=== PATIENT | female | born 1940 | race Caucasian/White ===

== ENCOUNTER 2017-08-23 10:11 | Emergency (ER) | payer MEDICARE ==
--- NOTE | 2017-08-23 11:11 | RAD ---
LEFT HIP 2 VIEWS: Date: 08/23/17 HISTORY: Emergency exam. Fall. COMPARISON: 08/27/16 exam. FINDINGS: There is a healed intertrochanteric fracture with intramedullary nail. Mild calcific tendinosis of th e iliopsoas tendon. Left obturator ring is intact. IMPRESSION: Satisfactory appearance of the left femoral hardware. No acute fracture or malalignment. POS: [facility]
[2017-08-23 11:25] LABS: #Basophils 0.1 thou/uL (0.0-0.2); #Eosinphils 0.1 thou/uL (0.0-0.7); #Lymphocytes 1.8 thou/uL (1.20-3.40); #Monocytes 0.6 thou/uL (0.11-0.59); #Neutrophils 6.8 thou/uL (1.40-6.50); %Basophils 0.6 % (0.0-1.0); %Eosinophils 1.4 % (0.0-10.0); %Lymphocytes 19.5 % (21.0-51.0); %Monocytes 6.4 % (0.0-10.0); %Neutrophils 72.2 % (42.0-75.0); Hemoglobin 13.6 g/dL (12.0-16.0); Mean Corpuscular HGB CONC 32.9 g/dL (32.0-36.0); Mean Corpuscular Volume 94.2 fl (81.0-99.0); Mean Platelet Volume 6.9 fL (7.4-10.4); Platelet Count 290 thou/uL (130-400); RBC Distribution Width 12.9 % (11.5-14.5); Red Blood Cell (RBC) Count 4.39 mill/uL (4.20-5.40); White Blood Cell (WBC) Count 9.4 thou/uL (4.8-10.8)
[2017-08-23 11:31] LABS: INR-International Normal Ratio 1.1; Prothrombin Time 14.4 SEC (12.0-14.7)
--- NOTE | 2017-08-23 11:33 | RAD ---
SUPINE FRONTAL RADIOGRAPH CHEST: Date: 08-23-17 Comparison: 08-27-16 History: Pain, fall. FINDINGS: Supine imaging limits assessment for pneumothorax and pleural fluid. There is atherosclerotic calcifi cation of the thoracic aorta. No lobar consolidation or alveolar edema. IMPRESSION: No acute findings. POS: [facility]
--- NOTE | 2017-08-23 11:34 | RAD ---
TWO VIEWS OF THE RIGHT FEMUR: Date: 08-23-17 Provided Clinical History: Hip pain status post fall. FINDINGS/IMPRESSION: There is no evidence for fracture or other acute osseous abnormality involving the right femur. Vascu lar calcifications are seen. Degenerative changes are seen at the right knee. If there is persistent clinical concern, conservative management and follow up imaging are advised. POS: OFF
[2017-08-23 11:36] LABS: PTT 27.9 SEC (22.9-36.1)
--- NOTE | 2017-08-23 11:37 | RAD ---
FRONTAL RADIOGRAPH PELVIS: Date: 08-23-17 Comparison: 08-27-16 History: Fall, pain. FINDINGS: There is post-operative hardware associated with the left femoral neck and imaged proximal left femur . No widening of the sacroiliac joints or pubic symphysis. The pelvic rings appears intact. There is os teophyte formation in the region of the greater trochanter on the right. No displaced fracture. IMPRESSION: No displaced fracture seen. POS: [facility]
--- NOTE | 2017-08-23 11:40 | CT ---
CT BRAIN: Date: 08-23-17 Provided Clinical History: Fall. FINDINGS: Comparison 09-30-08. The ventricular system appears normal in size and morphology. There is no evidence for intracranial h emorrhage or mass effect. The extracranial soft tissues and osseous structures demonstrate no evidenc e for an acute abnormality. IMPRESSION: No evidence for intracranial hemorrhage or mass effect. POS: OFF
--- NOTE | 2017-08-23 11:45 | CT ---
CERVICAL SPINE CT: Date: 08-23-17 Provided Clinical History: Fall. FINDINGS: There is no evidence for fracture or traumatic subluxation. No prevertebral soft tissue swelling is e vident. Visualized lung apices appear clear. Cervical degenerative changes are seen. IMPRESSION: No evidence for fracture or traumatic subluxation. POS: OFF
[2017-08-23 11:51] LABS: CKMB 1.8 ng/mL (0-6.6); Troponin I Less than 0.010 ng/mL (< 0.028)
[2017-08-23 11:56] LABS: ALT (SGPT) 12 U/L (8-55); AST (SGOT) 16 U/L (5-34); Albumin 4.1 g/dL (3.4-4.8); Alkaline Phosphatase 83 U/L (40-150); Anion Gap 11 mmol/L (10-20); BUN (Urea Nitrogen) 25 mg/dL (9.8-20.1); Bilirubin, Total 0.6 mg/dL (0.2-1.2); CK (CPK) 38 U/L (29-168); Calc. Creatinine Clearance 0 mL/min (70-130); Calcium 10.1 mg/dL (7.8-10.44); Carbon Dioxide 27 mmol/L (23-31); Estimated GFR-MDRD 54; Globulin 3.4 g/dL (2.4-3.5); Glucose 115 mg/dL (83-110); Potassium 5.1 mmol/L (3.5-5.1); Protein, Total 7.5 g/dL (6.0-8.3); Sodium 135 mmol/L (136-145)
[2017-08-23 12:00] LABS: Chloride 102 mmol/L (98-107)
== END 2017-08-23 13:56 | disposition home or self-care (01) ==
LOC: ERS 10:11
DX: M25.552 Pain in left hip (principal); E03.9 Hypothyroidism, unspecified; I10 Essential (primary) hypertension; W17.89XA Other fall from one level to another, initial encounter
CPT/HCPCS: 36415; 70450; 71045; 72125; 72170; 80053; 82553; 84484; 85025; 85610; 85730

== ENCOUNTER 2019-05-13 22:11 | Inpatient (IN) | payer MEDICARE, MEDICAID ==
[~2019-05-13 22:11] MED LIST: Iopamidol-370 76% 500 ML 1 ML ONE
--- NOTE | 2019-05-13 23:06 | RAD ---
Chest one view HISTORY: Cough. Hypoxia. COMPARISON: 08/23/2017. FINDINGS: Cardiac silhouette is magnified, enlarged, and partially obscured by left pleural fluid and patchy bibasilar infiltrates. Pulmonary vasculature is engorged. Mediastinum is midline with aortic calcification. No evidence of pneumothorax. IMPRESSION: Dense bibasilar infiltrates and left pleural fluid. Consider pneumonitis at the lung base s superimposed upon pulmonary vascular congestion. Atherosclerosis.
[2019-05-13] MEDS ORDERED: Diltiazem 125 MG/25 ML ONE (23:07)
[2019-05-13] MEDS ORDERED: Aspirin Chewable 81 MG TAB ONE (23:15)
[2019-05-13 23:16] LABS: #Basophils 0.1 thou/uL (0.0-0.2); #Eosinphils 0.1 thou/uL (0.0-0.7); #Lymphocytes 1.8 thou/uL (1.20-3.40); #Neutrophils 9.1 thou/uL (1.40-6.50); %Basophils 0.7 % (0.0-1.0); %Eosinophils 0.8 % (0.0-10.0); %Lymphocytes 14.5 % (21.0-51.0); %Monocytes 8.4 % (0.0-10.0); %Neutrophils 75.5 % (42.0-75.0); Hemoglobin 11.6 g/dL (12.0-16.0); Mean Corpuscular HGB CONC 31.9 g/dL (32.0-36.0); Mean Corpuscular Hemoglobin 29.4 pg (27.0-31.0); Mean Corpuscular Volume 92.2 fL (78.0-98.0); Mean Platelet Volume 7.2 fL (7.4-10.4); Platelet Count 345 thou/uL (130-400); RBC Distribution Width 14.3 % (11.5-14.5); Red Blood Cell (RBC) Count 3.94 mill/uL (4.20-5.40); White Blood Cell (WBC) Count 12.1 thou/uL (4.8-10.8)
[2019-05-13 23:39] LABS: ALT (SGPT) 14 U/L (8-55); AST (SGOT) 18 U/L (5-34); Albumin 3.8 g/dL (3.4-4.8); Alkaline Phosphatase 117 U/L (40-110); Anion Gap 14 mmol/L (10-20); BUN (Urea Nitrogen) 21 mg/dL (9.8-20.1); Bilirubin, Total 0.8 mg/dL (0.2-1.2); CK (CPK) 23 U/L (29-168); Calc. Creatinine Clearance 0 mL/min (70-130); Calcium 9.9 mg/dL (7.8-10.44); Carbon Dioxide 27 mmol/L (23-31); Chloride 108 mmol/L (98-107); Estimated GFR-MDRD 55; Globulin 3.5 g/dL (2.4-3.5); Glucose 153 mg/dL (83-110); Lipase 41 U/L (8-78); Magnesium 1.9 mg/dL (1.6-2.6); Potassium 4.5 mmol/L (3.5-5.1); Protein, Total 7.3 g/dL (6.0-8.3); Sodium 144 mmol/L (136-145)
[2019-05-13] MEDS ORDERED: Sodium Chloride 0.9% 1,000 ML IV SCH (23:45)
[2019-05-13 23:51] LABS: Actual Bicarbonate (HCO3a) 24.2 mEq/L (22-28); Analyzer IN Cardio ER; Base Excess (BEa) 0.1 mEq/L (-2.0 to +3.0); CO2 Tension 37.4 mmHg (35.0-45.0); Calcium, Ionized 1.26 mmol/L (1.12-1.30); Carboxyhemoglobin (COHb) 0.5 gm% (0.0-3.0); Hemoglobin (Hb) 12.1 g/dL (12.0-16.0); O2 Tension (PaO2) 92.4 mmHg (> 60.0); Potassium - ABG Lab 4.11 mmol/L (3.70-5.30); pH, Arterial 7.43 (7.35-7.45)
[2019-05-13 23:53] LABS: Puncture Site RRA
[2019-05-13] MEDS ORDERED: Diltiazem HCl 125 MG, Admixture Fee 1 EACH in Sodium Chloride 0.9% 100 ML IVPB SCH (23:59)
[2019-05-14 00:01] LABS: CKMB 1.3 ng/mL (0-6.6)
--- NOTE | 2019-05-14 00:37 | PDOC.HHP ---
Hospitalist HPI - History of Present Illness Hypoxia History of Present Illness: Esteban is an 79 year old female brought here from [facility], was desaturating to 80s, had h/o dementia. In ED found to be afib w/ RVR, 126 bpm on EKG, hypoxic, patient placed on diltiazem drip and converted to sinus then back to afib, rate improved however. O2 sat initally low 90s on 3L but improved once cardiac status improved. Labs revealed elevated troponin. BNP elevated. Given empiric vanc/zosyn/levaquin for possible aspiration pneumonia, [facility] physicians consutled for admission. CTA performed and report pending. On my exam sleeping but rousable, denies shortness of breath or chest pain. Hospitalist ROS - Review of Systems Eyes: denies: pain, vision change ENT: denies: ear pain, ear discharge Respiratory: reports: shortness of breath. denies: cough, dry Cardiovascular: denies: chest pain, palpitations Gastrointestinal: denies: nausea, vomiting Genitourinary: denies: dysuria, frequency Musculoskeletal: denies: neck pain, shoulder pain Skin: denies: rash, lesions Neurological: denies: weakness, numbness All other systems reviewed; all pertinent +/- noted in HPI/Subj Hospitalist History - Past Medical History Other Medical History: hypothyroidism HTN Alzheimers dementia - Past Surgical History Other Surgical History: hysterectomy, bladder suspension, R hip surgery - Family History Family History: reports: no pertinent history - Social History Smoking Status: Former smoker Alcohol: reports: None Drugs: reports: none Living Situation: Alf - Exam General Appearance: NAD, awake alert Eye: PERRL, anicteric sclera ENT: normocephalic atraumatic, moist mucosa Neck: supple, no JVD Heart: irregular Heart - other findings: tachycardic Respiratory: CTAB, no wheezes, no rales, no ronchi Gastrointestinal: soft, non-tender, non-distended, normal bowel sounds Extremities: no cyanosis, no clubbing, no edema Skin: no lesions, no rashes Neurological: cranial nerve grossly intact, normal sensation to touch, no focal deficits Hospitalist Results - Labs Result Diagrams: 05/13/19 23:04 05/13/19 23:04 Lab results: WBC 12.1 thou/uL (4.8-10.8) H 05/13/19 23:04 Hgb 11.6 g/dL (12.0-16.0) L 05/13/19 23:04 Hct 36.3 % (36.0-47.0) 05/13/19 23:04 MCV 92.2 fL (78.0-98.0) 05/13/19 23:04 Plt Count 345 thou/uL (130-400) 05/13/19 23:04 Neutrophils % 75.5 % (42.0-75.0) H 05/13/19 23:04 ABG pH 7.43 (7.35-7.45) 05/13/19 23:43 ABG pCO2 37.4 mmHg (35.0-45.0) 05/13/19 23:43 ABG pO2 92.4 mmHg (> 60.0) H 05/13/19 23:43 Sodium 144 mmol/L (136-145) 05/13/19 23:04 Potassium 4.5 mmol/L (3.5-5.1) 05/13/19 23:04 Chloride 108 mmol/L (98-107) H 05/13/19 23:04 Carbon Dioxide 27 mmol/L (23-31) 05/13/19 23:04 BUN 21 mg/dL (9.8-20.1) H 05/13/19 23:04 Creatinine 0.97 mg/dL (0.6-1.1) 05/13/19 23:04 Glucose 153 mg/dL (83-110) H 05/13/19 23:04 Lactic Acid 1.2 mmol/L (0.5-2.2) 05/13/19 23:30 Calcium 9.9 mg/dL (7.8-10.44) 05/13/19 23:04 Total Bilirubin 0.8 mg/dL (0.2-1.2) 05/13/19 23:04 AST 18 U/L (5-34) 05/13/19 23:04 ALT 14 U/L (8-55) 05/13/19 23:04 Alkaline Phosphatase 117 U/L (40-110) H 05/13/19 23:04 Creatine Kinase 23 U/L (29-168) L 05/13/19 23:04 CK-MB (CK-2) 1.3 ng/mL (0-6.6) 05/13/19 23:04 Troponin I 0.039 ng/mL (< 0.028) H 05/13/19 23:04 B-Natriuretic Peptide 461.6 pg/mL (0-100) H 05/13/19 23:04 Serum Total Protein 7.3 g/dL (6.0-8.3) 05/13/19 23:04 Albumin 3.8 g/dL (3.4-4.8) 05/13/19 23:04 Lipase 41 U/L (8-78) 05/13/19 23:04 - EKG Interpretation EKG: afib rate [address] changes Hospitalist H&P A/P - Plan Plan: Esteban is an 79 year old female with PMH hypothyroidism, HTN, Alzheimers dementia admitted for: # bilateral pneumonia - suspect aspiration given dementia - admit to telemetry - speech consult - vanc and zosyn - follow up final read of CTA, not yet completed # atrial fibrillation w/ rvr - continue diltiazem gtt - treat infection as above # sepsis secondary to pneumonia - treat as above, follow blood cultures # hypothyroidism - resume home meds once med rec complete # HTN - resume home meds once med rec complete, PRNs in chart # Alzheimers dementia - resume home meds once med rec complete
[2019-05-14] MEDS ORDERED: Piperacillin/Tazobactam 3.375 GM VIAL ONE ×3 (00:44→16:31)
[2019-05-14 02:47] LABS: Troponin I 0.023 ng/mL (< 0.028)
[2019-05-14 03:07] LABS: Bilirubin Negative (Negative); Blood, Urine Negative (Negative); Clarity Clear (Clear); Glucose, Urine (Dipstick) Normal (Negative); Leukocyte 500 Leu/uL (Negative); Nitrite 1+ (Negative); Protein, Urine (Dipstick) 30 mg/dL (Neg-Trace); Squamous Epithelial 0-3 HPF (0-3); Urobilinogen Normal mg/dL (Less than 2); WBC/HPF 21-50 HPF (0-3)
[2019-05-14 03:09] LABS: Bacteria/HPF 1+ HPF (None Seen)
[2019-05-14 03:12] LABS: RBC/HPF None Seen HPF (0-3)
[2019-05-14] MEDS ORDERED: Morphine 2 MG/ML SYRINGE SLOW IVP PRN (03:45)
[2019-05-14] MEDS ORDERED: Promethazine HCl 12.5 MG in Sodium Chloride 0.9% 50 ML IVPB PRN (03:45)
[2019-05-14] MEDS ORDERED: hydrALAZINE 20 MG/ML VIAL SLOW IVP PRN (03:45)
[2019-05-14] MEDS ORDERED: Ondansetron PF 4 MG/2 ML Vial IVP PRN (03:45)
[2019-05-14] MEDS ORDERED: cloNIDine 0.1 MG TAB PO PRN (03:45)
[2019-05-14] MEDS ORDERED: Sodium Chloride 0.9% 1,000 ML IV SCH (04:37)
[2019-05-14] MEDS ORDERED: Azithromycin 500 MG in Sodium Chloride 0.9% 250 ML 250 ML IVPB SCH (04:45)
[2019-05-14] MEDS ORDERED: Ampicillin/Sulbactam 3 GM in Sodium Chloride 0.9% 100 ML IVPB SCH (05:00)
[2019-05-14 05:31] VITALS: BMI 22.5
[2019-05-14] MEDS: Piperacillin/Tazobactam 3.375 GM in Sodium Chloride 0.9% 100 ML IVPB SCH ×4 (06:00→23:59)
[2019-05-14] MEDS: Vancomycin HCl 1 GM in Premix Bag 1 BAG IVPB SCH (06:20)
[2019-05-14 06:33] LABS: Troponin I 0.025 ng/mL (< 0.028)
--- NOTE | 2019-05-14 08:33 | CT ---
PRELIMINARY REPORT/[facility]/EMERGENCY AFTER HOURS PROCEDURE: EXAM: CTA Chest with Intravenous Contrast CLINICAL HISTORY: 79 YO F presents to the ED via EMS from [facility] w/ mid 80's on RA. Pt states she's coughing mo re than usual. Cough is productive at times. Pt denies trouble breathing, is unsure about chest taqueria n. Pt has a hx of dementia, hip fx, and smoking. TECHNIQUE: Axial CTA images of the chest with intravenous contrast. MIP reconstructed images were created and re viewed. CONTRAST: With; 70ML ISOVUE 370 COMPARISON: None provided. FINDINGS: PULMONARY ARTERIES: There is no intraluminal filling defect suspicious for PE. AORTA: Calcifications of the aorta. LUNGS: Patchy opacities throughout the lungs are favored to represent pneumonia. PLEURAL SPACES: Moderate right and small left pleural effusions. HEART AND MEDIASTINUM: Coronary artery calcifications. Cardiomegaly. LYMPH NODES: No lymphadenopathy. BONES: No focal osseous abnormality or acute fracture. CHEST WALL AND UPPER ABDOMEN: Images through the upper abdomen are unremarkable. The chest wall is un remarkable. IMPRESSION: No pulmonary embolism. No thoracic aortic aneurysm or dissection. Cardiomegaly with moderate right and small left pleural effusions. Patchy opacities throughout the lungs are favored to represent pneumonia. ELECTRONICALLY SIGNED BY: Vaishali Amanda MD May 14, 2019 12:36:53 AM OIL HE[employer] TECHNICIAN This report is intended for review by the ordering physician only, in accordance of law. If you recei ve this report in error, please call [facility] at [phone]. FINAL REPORT CT ANGIOGRAM OF THE CHEST: HISTORY: Hypoxia. Tachycardia. COMPARISON: None. TECHNIQUE: CT angiogram of the chest was performed in the axial plane. Three-dimensional reformatted images are submitted for interpretation. FINDINGS: There is evidence of cardiomegaly. No significant pericardial fluid. Extensive atherosclerosis of t he aorta. No evidence of pulmonary artery embolism to the level of the segmental arteries. Bilatera l pleural effusions with lung parenchymal changes due to atelectasis, pneumonia, or aspiration. Néstor tional patchy ground-glass opacities in both upper lobes may represent edema. IMPRESSION: This report is in agreement with the preliminary report by [facility]. No evidence of pulmonar y artery embolism to the level of the segmental arteries. POS: OFF
[2019-05-14] MEDS: Senokot S 8.6-50 MG TAB PO SCH ×2 (09:00→21:10)
[2019-05-14] MEDS ORDERED: Azithromycin 250 MG TAB PO SCH (09:00)
[2019-05-14 09:28] LABS: Troponin I 0.012 ng/mL (< 0.028)
[2019-05-14 13:15] LABS: Troponin I 0.037 ng/mL (< 0.028)
[2019-05-14] MEDS ORDERED: Furosemide 40 MG/4 ML VIAL SLOW IVP SCH ×2 (15:00→20:45)
[2019-05-14] MEDS ORDERED: Furosemide 40 MG/4 ML VIAL ONE (15:39)
[2019-05-14 16:24] LABS: Troponin I 0.034 ng/mL (< 0.028)
[2019-05-14] MEDS ORDERED: Furosemide 20 MG/2 ML VIAL SLOW IVP SCH (19:45)
--- NOTE | 2019-05-14 20:01 | PDOC.HOSPP ---
- Subjective Encounter Date: 05/14/19 Encounter Time: 13:48 Subjective: 79 y/o female, assisted resident, with dementia, HTN admitted with worsening cough/SOB associated with wheezing and hypoxia. Found to be in A fib RVR. Further evaluation with CTA chest was negative for PE but showed multifocal opacities. Started on broad spectrum antibiotics and cardizem infusion. Later developed worsening SOB which improved with breathing treatment and lasix. - Objective Vital Signs & Weight: Vital Signs (12 hours) Temp Pulse Resp BP Pulse Ox 05/14/19 19:21 98 20 05/14/19 16:31 105 H 26 H 90/70 90 L 05/14/19 16:00 100 29 H 95/65 05/14/19 13:17 84 23 H 05/14/19 12:42 97.8 F 05/14/19 12:30 88 24 H 135/81 91 L 05/14/19 12:00 85 20 134/59 L 92 L 05/14/19 11:30 90 20 123/58 L 93 L 05/14/19 10:30 87 121/71 95 05/14/19 10:12 98.0 F 05/14/19 08:33 75 19 137/104 H 96 05/14/19 08:00 81 21 H 135/83 94 L Weight Weight 139 lb 11.2 oz Result Diagrams: 05/13/19 23:04 05/13/19 23:04 Hospitalist ROS - Medication Medications: Active Medications Generic Name Dose Route Start Last Admin Trade Name Freq PRN Reason Stop Dose Admin Albuterol/Ipratropium 3 ml 05/14/19 13:00 05/14/19 19:21 Duoneb NEB 3 ml [id number] KAREN Administration Piperacillin Sod/Tazobactam 100 mls @ 200 mls/hr 05/14/19 06:00 05/14/19 16: 33 Sod 3.375 gm/ Sodium Chloride IVPB 100 mls Q6HR KAREN Administration Vancomycin HCl 1 gm/ Device 200 mls @ 133.333 mls/hr 05/14/19 06:00 05/14/19 06:20 IVPB 200 mls 0600 KAREN Administration Levofloxacin 750 mg/ Device 150 mls @ 100 mls/hr 05/14/19 12:00 05/14/19 12: 30 IVPB 150 mls 1200 KAREN Administration Pantoprazole Sodium 40 mg 05/14/19 09:00 05/14/19 09:00 Protonix PO Not Given DAILY KAREN Senna/Docusate Sodium 1 tab 05/14/19 09:00 05/14/19 09:00 Senokot S PO Not Given BID KAREN - Exam General Appearance: awake alert Eye: anicteric sclera ENT: normocephalic atraumatic Neck: symmetric, no JVD Heart: irregular, murmur present Respiratory - other findings: fair air entry with scattered rhonchi and transmitted sound. Gastrointestinal: soft, non-tender, non-distended, normal bowel sounds Extremities: no cyanosis, 1+ LE edema Neurological: cranial nerve grossly intact, no focal deficits Hosp A/P (1) Acute respiratory failure Code(s): J96.00 - ACUTE RESPIRATORY FAILURE, UNSP W HYPOXIA OR HYPERCAPNIA Status: Acute (2) Atrial fibrillation with rapid ventricular response Code(s): I48.91 - UNSPECIFIED ATRIAL FIBRILLATION Status: Acute (3) Multifocal pneumonia Code(s): J18.9 - PNEUMONIA, UNSPECIFIED ORGANISM Status: Acute (4) Acute CHF Code(s): I50.9 - HEART FAILURE, UNSPECIFIED Status: Acute (5) Elevated troponin Code(s): R79.89 - OTHER SPECIFIED ABNORMAL FINDINGS OF BLOOD CHEMISTRY Status : Acute (6) Hypothyroidism Code(s): E03.9 - HYPOTHYROIDISM, UNSPECIFIED Status: Acute (7) Dementia Code(s): F03.90 - UNSPECIFIED DEMENTIA WITHOUT BEHAVIORAL DISTURBANCE Status: Acute - Plan Continue broad spectrum antibiotics, Start mucinex and bronchodilators as well as inhaled steroid. Start as needed diuretic. Get Echo and cardiology consult. Monitor CBC and renal function.
[2019-05-14] MEDS ORDERED: Budesonide 0.25 MG/2 ML NEB INH SCH (20:15)
[2019-05-14] MEDS: guaiFENesin ER 600 MG TAB PO SCH (21:10)
--- NOTE | 2019-05-15 01:48 | CON ---
DATE OF CONSULTATION: 05/14/2019 HISTORY OF PRESENT ILLNESS: Shaun Nicolas is an 79-year-old white female, who I did see when she was admitted to the hospital in August 2016. She stated that she had been told for years that she had a heart murmur. She had a fall at home, underwent ORIF of the left hip. She did describe episodes of PND when I saw her after surgery. She denies any chest discomfort. Echocardiogram revealed ejection fraction of 55% to 60%. There was evidence for diastolic dysfunction. There was mild mitral regurgitation, mild tricuspid regurgitation. The peak gradient across the aortic valve is 58 mm, mean gradient 39 mm. Aortic valve area 0.57 cm2. She returned to the office on October 25, 2016, and still had not recovered very well from her hip ORIF. Both the son and patient agreed that more recovery time was needed before addressing the aortic stenosis. We agreed that she should return in 2 months for followup. She did have a 2-month followup appointment, but did not return for that and I have not seen her since. She since has gone to the [facility]. When asked if she gets up and walk, she says yes but the son says that she is basically in a wheelchair. She has had several falls in the bathroom at [facility]. She was noted to have increased dyspnea today as well as was hypoxic, and was brought to the emergency room. She has been noted to be in atrial fibrillation with fast ventricular response, was started on intravenous Cardizem, and initially converted back to sinus rhythm, but is now back in atrial fibrillation. However, the rate appears to be controlled in the low to mid 90s. She denies chest discomfort at this time. She does state that at times, she will have chest pressure that lasts for 10 seconds. PAST MEDICAL HISTORY: Hypertension, hypothyroidism, anemia, dementia, aortic stenosis. PAST SURGICAL HISTORY: Hysterectomy, bladder suspension, left hip ORIF. MEDICATIONS: 1. Aricept 10 mg daily. 2. Vasotec 5 mg daily. 3. Lovenox 40 mg q.p.m. 4. Ferrous sulfate 325 daily. 5. Hydralazine p.r.n. 6. Levothyroxine 75 mcg daily. 7. Namzaric 14/10 mg daily. 8. Zofran p.r.n. 9. Protonix 40 daily. 10. Sertraline 50 daily. 11. Ultram 100 mg q.4 hours p.r.n. ALLERGIES: SULFA. SOCIAL HISTORY: She stopped smoking 20 years ago. She does not drink. REVIEW OF SYSTEMS: Unreliable due to her dementia. PHYSICAL EXAMINATION: VITAL SIGNS: Blood pressure 131/76, pulse of 72. HEENT: PERRL. NECK: Supple. CHEST: Reveals crackles bilaterally. CARDIOVASCULAR: S1, S2 normal without any S3 or S4. There is a 2/6 systolic ejection murmur throughout the precordium. ABDOMEN: Normal bowel sounds without tenderness or organomegaly. EXTREMITIES: Revealed 1+ pretibial edema. NEUROLOGIC: Grossly intact. SKIN: Warm and dry. LABORATORY DATA: Chest x-ray revealed dense bibasilar infiltrates, left pleural effusion. Chest CT angiogram revealed no evidence of pulmonary embolism. There is cardiomegaly with moderate right and small left pleural effusion. Patchy of opacities throughout the lungs was felt to represent pneumonia. White count 12, 100; hemoglobin 11.6; hematocrit 36.3; platelets 365,000. PH 7.43, pCO2 of 37.4, PO2 of 92.4. Troponin I is up to 0.037, 0.039. BNP 461.6. Sodium 144, potassium 4.5, chloride 108, carbon dioxide 27, BUN 21, creatinine 0.97. TSH is normal. Above EKG revealed rate of 126 per minute with no acute changes. IMPRESSION: 1. Respiratory distress with hypoxemia, probably due to aspiration pneumonia. 2. Severe aortic stenosis with finding of peripheral edema. 3. Atrial fibrillation with fast ventricular response, which is a new finding for her. 4. Possible sepsis. 5. Hypertension. 6. Hypothyroidism. 7. Dementia. 8. The patient continues with falls. RECOMMENDATIONS: [facility], I do not feel that she should be anticoagulated. I feel that the best option with this lady would be rate control. Two years ago, the son, patient, and I made a decision not to be aggressive with treating the aortic stenosis, which would not be appropriate in a demented, nonambulatory [facility] patient. Job ID: [id number] MTDD
[2019-05-15] MEDS: Piperacillin/Tazobactam 3.375 GM in Sodium Chloride 0.9% 100 ML IVPB SCH ×4 (05:02→22:52)
[2019-05-15 05:10] LABS: #Lymphocytes 1.2 thou/uL (1.20-3.40); #Monocytes 1.1 thou/uL (0.11-0.59); %Basophils 0.3 % (0.0-1.0); %Eosinophils 0.2 % (0.0-10.0); %Lymphocytes 11.5 % (21.0-51.0); %Monocytes 10.2 % (0.0-10.0); %Neutrophils 77.8 % (42.0-75.0); Hemoglobin 10.1 g/dL (12.0-16.0); Mean Corpuscular HGB CONC 31.4 g/dL (32.0-36.0); Mean Corpuscular Hemoglobin 29.3 pg (27.0-31.0); Mean Corpuscular Volume 93.5 fL (78.0-98.0); Mean Platelet Volume 7.7 fL (7.4-10.4); Platelet Count 259 thou/uL (130-400); RBC Distribution Width 14.1 % (11.5-14.5); Red Blood Cell (RBC) Count 3.45 mill/uL (4.20-5.40); White Blood Cell (WBC) Count 10.2 thou/uL (4.8-10.8)
[2019-05-15 05:23] LABS: Anion Gap 16 mmol/L (10-20); BUN (Urea Nitrogen) 16 mg/dL (9.8-20.1); Calc. Creatinine Clearance 44 mL/min (70-130); Calcium 9.2 mg/dL (7.8-10.44); Carbon Dioxide 26 mmol/L (23-31); Chloride 105 mmol/L (98-107); Estimated GFR-MDRD 53; Glucose 137 mg/dL (83-110); Magnesium 1.6 mg/dL (1.6-2.6); Potassium 3.6 mmol/L (3.5-5.1); Sodium 143 mmol/L (136-145)
[2019-05-15] MEDS: Vancomycin HCl 1 GM in Premix Bag 1 BAG IVPB SCH (05:53)
[2019-05-15] MEDS: Budesonide 0.5 MG/2 ML NEB INH SCH ×2 (07:41→18:16)
[2019-05-15] MEDS ORDERED: Diltiazem HCl 125 MG, Admixture Fee 1 EACH in Sodium Chloride 0.9% 100 ML IVPB SCH (08:23)
[2019-05-15] MEDS ORDERED: Digoxin 0.5 MG/2 ML AMP SLOW IVP SCH ×2 (08:30→15:00)
[2019-05-15] MEDS: guaiFENesin ER 600 MG TAB PO SCH ×2 (09:50→21:05)
[2019-05-15] MEDS: Furosemide 20 MG TAB PO SCH (09:50)
[2019-05-15] MEDS: Senokot S 8.6-50 MG TAB PO SCH ×2 (09:50→20:56)
[2019-05-15] MEDS ORDERED: FLU VACC TS2019-20(65YR UP)/PF 180 MCG/0.5 ML SYRINGE IM ONE (10:15)
[2019-05-15] MEDS ORDERED: Prevnar 13-Val Conj/PF 0.5 ML SYRINGE IM ONE (10:15)
--- NOTE | 2019-05-15 15:08 | PDOC.HOSPP ---
- Subjective Subjective: Says she is doing ok. Reports breathing ok. Voices no other concerns. - Objective Vital Signs & Weight: Vital Signs (12 hours) Temp Pulse Resp BP BP Pulse Ox 05/15/19 14:38 85 05/15/19 13:17 85 18 94 L 05/15/19 11:55 97.4 F L 67 20 117/55 L 96 05/15/19 09:51 90 05/15/19 07:57 92 L 05/15/19 07:54 98.2 F 90 18 110/55 L 92 L 05/15/19 07:40 88 16 94 L 05/15/19 04:01 97.5 F L 108 H 16 107/52 L 92 L Weight Weight 139 lb 11.2 oz Result Diagrams: 05/15/19 04:32 05/15/19 04:32 Hospitalist ROS - Medication Medications: Active Medications Generic Name Dose Route Start Last Admin Trade Name Freq PRN Reason Stop Dose Admin Albuterol/Ipratropium 3 ml 05/14/19 13:00 05/15/19 13:17 Duoneb NEB 3 ml [id number] KAREN Administration Budesonide 0.5 mg 05/15/19 06:30 05/15/19 07:41 Pulmicort Neb Solution INH 0.5 mg BID-RT KAREN Administration Digoxin 0.25 mg 05/15/19 15:00 05/15/19 14:38 Lanoxin SLOW IVP 05/15/19 17:00 0.25 mg 1500 KAREN Administration Furosemide 20 mg 05/15/19 09:00 05/15/19 09:50 Lasix PO 20 mg DAILY KAREN Administration Guaifenesin 600 mg 05/14/19 21:00 05/15/19 09:50 Mucinex PO 600 mg Q12HR KAREN Administration Piperacillin Sod/Tazobactam 100 mls @ 200 mls/hr 05/14/19 06:00 05/15/19 12: 58 Sod 3.375 gm/ Sodium Chloride IVPB 100 mls Q6HR KAREN Administration Vancomycin HCl 1 gm/ Device 200 mls @ 133.333 mls/hr 05/14/19 06:00 05/15/19 05:53 IVPB 200 mls 0600 KAREN Administration Levofloxacin 750 mg/ Device 150 mls @ 100 mls/hr 05/14/19 12:00 05/15/19 12: 58 IVPB 150 mls 1200 KAREN Administration Pantoprazole Sodium 40 mg 05/14/19 09:00 05/15/19 09:50 Protonix PO 40 mg DAILY KAREN Administration Senna/Docusate Sodium 1 tab 05/14/19 09:00 05/15/19 09:50 Senokot S PO 1 tab BID KAREN Administration - Exam General Appearance: NAD, awake alert Heart: RRR, no gallops, no rubs, normal peripheral pulses, II/IV (High pitched systolic throughout the precordium.) Respiratory: CTAB, no wheezes, no rales, no ronchi, normal chest expansion, no tachypnea, normal percussion Gastrointestinal: soft, non-tender, non-distended, normal bowel sounds, no palpable masses, no hepatomegaly, no splenomegaly, no bruit Extremities: no cyanosis, no clubbing, no edema Musculoskeletal: normal tone, generalized weakness Psychiatric: normal affect Hosp A/P (1) Acute respiratory failure Code(s): J96.00 - ACUTE RESPIRATORY FAILURE, UNSP W HYPOXIA OR HYPERCAPNIA Status: Acute (2) Atrial fibrillation with rapid ventricular response Code(s): I48.91 - UNSPECIFIED ATRIAL FIBRILLATION Status: Acute (3) Dementia Code(s): F03.90 - UNSPECIFIED DEMENTIA WITHOUT BEHAVIORAL DISTURBANCE Status: Acute (4) Elevated troponin Code(s): R79.89 - OTHER SPECIFIED ABNORMAL FINDINGS OF BLOOD CHEMISTRY Status : Acute (5) Hypothyroidism Code(s): E03.9 - HYPOTHYROIDISM, UNSPECIFIED Status: Acute (6) Multifocal pneumonia Code(s): J18.9 - PNEUMONIA, UNSPECIFIED ORGANISM Status: Acute (7) Severe aortic stenosis Code(s): I35.0 - NONRHEUMATIC AORTIC (VALVE) STENOSIS Status: Acute (8) Severe tricuspid regurgitation Code(s): I07.1 - RHEUMATIC TRICUSPID INSUFFICIENCY Status: Acute (9) Acute on chronic systolic (congestive) heart failure Code(s): I50.23 - ACUTE ON CHRONIC SYSTOLIC (CONGESTIVE) HEART FAILURE Status : Acute (10) CKD (chronic kidney disease), stage III Code(s): N18.3 - CHRONIC KIDNEY DISEASE, STAGE 3 (MODERATE) Status: Acute - Plan Possible aspiration pneumonia. She had swallow eval by [facility] and recommendations noted. Has some degree of dysphagia. Continue IV Vanc and Zosyn given that she is from [facility]. Can narrow as she is improves. Has chosen not to pursue treatment of valvular disease. Palliative care consult. Cardiology working on rate control efforts with digoxin. No anticoagulation. Oxygen and nebs for respiratory failure. Seems to be improved, but still has significant oxygen demand. Elevated troponins are not physiologically consistent with ischemia of any kind. She does not have sepsis.
[2019-05-16] MEDS: Piperacillin/Tazobactam 3.375 GM in Sodium Chloride 0.9% 100 ML IVPB SCH ×3 (05:32→17:42)
[2019-05-16 05:33] LABS: #Eosinphils 0.2 thou/uL (0.0-0.7); #Lymphocytes 1.4 thou/uL (1.20-3.40); #Neutrophils 10.3 thou/uL (1.40-6.50); %Basophils 0.1 % (0.0-1.0); %Eosinophils 1.2 % (0.0-10.0); %Lymphocytes 11.1 % (21.0-51.0); %Monocytes 7.5 % (0.0-10.0); %Neutrophils 80.1 % (42.0-75.0); Hemoglobin 11.2 g/dL (12.0-16.0); Mean Corpuscular HGB CONC 32.2 g/dL (32.0-36.0); Mean Corpuscular Hemoglobin 29.7 pg (27.0-31.0); Mean Corpuscular Volume 92.2 fL (78.0-98.0); Platelet Count 270 thou/uL (130-400); Red Blood Cell (RBC) Count 3.77 mill/uL (4.20-5.40); White Blood Cell (WBC) Count 12.9 thou/uL (4.8-10.8)
[2019-05-16 05:46] LABS: Anion Gap 16 mmol/L (10-20); BUN (Urea Nitrogen) 16 mg/dL (9.8-20.1); Calc. Creatinine Clearance 44 mL/min (70-130); Carbon Dioxide 24 mmol/L (23-31); Chloride 102 mmol/L (98-107); Estimated GFR-MDRD 53; Glucose 127 mg/dL (83-110); Magnesium 1.5 mg/dL (1.6-2.6); Potassium 3.8 mmol/L (3.5-5.1); Sodium 138 mmol/L (136-145); Vancomycin, Trough 12.5 ug/mL
[2019-05-16] MEDS: Vancomycin HCl 1 GM in Premix Bag 1 BAG IVPB SCH (06:34)
[2019-05-16] MEDS: Budesonide 0.5 MG/2 ML NEB INH SCH ×2 (06:52→18:35)
[2019-05-16] MEDS: Furosemide 20 MG TAB PO SCH (09:22)
[2019-05-16] MEDS: guaiFENesin ER 600 MG TAB PO SCH ×2 (09:22→20:07)
[2019-05-16] MEDS: Digoxin 0.125 MG TAB PO SCH (09:22)
[2019-05-16] MEDS: Senokot S 8.6-50 MG TAB PO SCH ×2 (09:23→20:07)
--- NOTE | 2019-05-16 15:19 | PDOC.HOSPP ---
- Subjective Encounter Date: 05/16/19 Encounter Time: 15:15 Subjective: f/u for resp failure, ? asp PNA on Zosyn/Vanc. - Objective Vital Signs & Weight: Vital Signs (12 hours) Temp Pulse Resp BP Pulse Ox 05/16/19 13:45 100 18 97 05/16/19 11:56 97.8 F 82 16 135/62 91 L 05/16/19 09:22 107 H 05/16/19 08:00 97 F L 107 H 17 157/57 H 94 L 05/16/19 06:53 96 05/16/19 06:52 90 16 96 05/16/19 03:43 97.9 F 103 H 20 125/52 L 92 L Weight Weight 139 lb 11.2 oz I&O: 05/15/19 05/16/19 05/17/19 06:59 06:59 06:59 Intake Total 320 Output Total 300 Balance 20 Result Diagrams: 05/16/19 04:44 05/16/19 04:44 Additional Labs: Microbiology 05/14/19 03:34 Urine Straight Catheter Urine Culture - Preliminary NO GROWTH AT 24 HOURS 05/13/19 23:32 Venous blood - Right Hand Blood Culture - Preliminary NO GROWTH AT 48 HOURS 05/13/19 23:30 Venous blood - Left Arm Blood Culture - Preliminary NO GROWTH AT 48 HOURS Laboratory Tests 05/16/19 04:44 Vancomycin Trough 12.5 Radiology Reviewed by me: Yes (2D echo - EF 55-60%, severe , severe TR, mod MR ) EKG Reviewed by me: Yes (Tele - A-fib in 60's) Hospitalist ROS - Medication Medications: Active Medications Generic Name Dose Route Start Last Admin Trade Name Freq PRN Reason Stop Dose Admin Albuterol/Ipratropium 3 ml 05/14/19 13:00 05/16/19 13:45 Duoneb NEB 3 ml [id number] KAREN Administration Budesonide 0.5 mg 05/15/19 06:30 05/16/19 06:52 Pulmicort Neb Solution INH 0.5 mg BID-RT KAREN Administration Digoxin 0.125 mg 05/16/19 09:00 05/16/19 09:22 Lanoxin PO 0.125 mg DAILY KAREN Administration Furosemide 20 mg 05/15/19 09:00 05/16/19 09:22 Lasix PO 20 mg DAILY KAREN Administration Guaifenesin 600 mg 05/14/19 21:00 05/16/19 09:22 Mucinex PO 600 mg Q12HR KAREN Administration Piperacillin Sod/Tazobactam 100 mls @ 200 mls/hr 05/14/19 06:00 05/16/19 11: 38 Sod 3.375 gm/ Sodium Chloride IVPB 100 mls Q6HR KAREN Administration Vancomycin HCl 1 gm/ Device 200 mls @ 133.333 mls/hr 05/14/19 06:00 05/16/19 06:34 IVPB 200 mls 0600 KAREN Administration Levofloxacin 750 mg/ Device 150 mls @ 100 mls/hr 05/14/19 12:00 05/16/19 11: 38 IVPB 150 mls 1200 KAREN Administration Pantoprazole Sodium 40 mg 05/14/19 09:00 05/16/19 09:23 Protonix PO 40 mg DAILY KAREN Administration Senna/Docusate Sodium 1 tab 05/14/19 09:00 05/16/19 09:23 Senokot S PO Not Given BID KAREN - Exam General Appearance: NAD, awake alert Eye: PERRL, anicteric sclera ENT: normocephalic atraumatic, no oropharyngeal lesions Neck: supple, symmetric, no JVD, no thyromegaly Heart: no gallops, no rubs, normal peripheral pulses, irregular Respiratory - other findings: diminished in bases, few scattered rhonchi Gastrointestinal: soft, non-tender, non-distended, normal bowel sounds, no palpable masses Extremities: no cyanosis, no clubbing, no edema Skin: normal turgor, no lesions Neurological: cranial nerve grossly intact, no new deficit Musculoskeletal: generalized weakness Psychiatric: oriented to person Hosp A/P (1) Acute on chronic systolic (congestive) heart failure Code(s): I50.23 - ACUTE ON CHRONIC SYSTOLIC (CONGESTIVE) HEART FAILURE Status : Acute Plan: EF 55-60%, continue Lasix 20mg daily, daily weights, I/O's (2) Acute respiratory failure Code(s): J96.00 - ACUTE RESPIRATORY FAILURE, UNSP W HYPOXIA OR HYPERCAPNIA Status: Acute Plan: Stable, continue O2 @ 2L/min NC (3) CKD (chronic kidney disease), stage III Code(s): N18.3 - CHRONIC KIDNEY DISEASE, STAGE 3 (MODERATE) Status: Chronic Plan: Stable currently, avoid nephrotoxic meds and limit contrast exposure (4) Dementia Code(s): F03.90 - UNSPECIFIED DEMENTIA WITHOUT BEHAVIORAL DISTURBANCE Status: Chronic Plan: Advanced, supportive mgmt, family for support (5) Severe aortic stenosis Code(s): I35.0 - NONRHEUMATIC AORTIC (VALVE) STENOSIS Status: Chronic Plan: No plan for surgical intervention, palliative measures (6) Severe tricuspid regurgitation Code(s): I07.1 - RHEUMATIC TRICUSPID INSUFFICIENCY Status: Chronic Plan: Conservative mgmt - Plan continue antibiotics, PT/OT, social scientist, speech therapy, respiratory therapy, DVT proph w/SCDs Consults: Palliative Care Stable currently Continue Lasix daily Continue Levaquin/Zosyn/Vanc Pulmonary support with Duonebs/Budesonide Palliative care consult Likely back to SNF in 24h
[2019-05-16] MEDS: Metoprolol Tartrate 25 MG TAB PO SCH (20:08)
[2019-05-16] MEDS: Donepezil HCl 10 MG TAB PO SCH (20:08)
[2019-05-17] MEDS: Piperacillin/Tazobactam 3.375 GM in Sodium Chloride 0.9% 100 ML IVPB SCH ×4 (00:45→17:25)
[2019-05-17 04:24] LABS: #Eosinphils 0.2 thou/uL (0.0-0.7); #Lymphocytes 1.7 thou/uL (1.20-3.40); #Neutrophils 10.1 thou/uL (1.40-6.50); %Eosinophils 1.3 % (0.0-10.0); %Lymphocytes 12.8 % (21.0-51.0); %Monocytes 7.5 % (0.0-10.0); %Neutrophils 78.4 % (42.0-75.0); Hemoglobin 11.2 g/dL (12.0-16.0); Mean Corpuscular Volume 90.4 fL (78.0-98.0); Mean Platelet Volume 7.8 fL (7.4-10.4); Platelet Count 284 thou/uL (130-400); RBC Distribution Width 13.9 % (11.5-14.5); Red Blood Cell (RBC) Count 3.87 mill/uL (4.20-5.40); White Blood Cell (WBC) Count 12.9 thou/uL (4.8-10.8)
[2019-05-17 04:37] LABS: Anion Gap 11 mmol/L (10-20); BUN (Urea Nitrogen) 14 mg/dL (9.8-20.1); Calc. Creatinine Clearance 44 mL/min (70-130); Calcium 9.4 mg/dL (7.8-10.44); Carbon Dioxide 30 mmol/L (23-31); Chloride 99 mmol/L (98-107); Estimated GFR-MDRD 52; Glucose 147 mg/dL (83-110); Magnesium 1.6 mg/dL (1.6-2.6); Potassium 3.3 mmol/L (3.5-5.1); Sodium 137 mmol/L (136-145)
[2019-05-17] MEDS: Levothyroxine Sodium 88 MCG TAB PO SCH (05:43)
[2019-05-17] MEDS: Vancomycin HCl 1 GM in Premix Bag 1 BAG IVPB SCH (05:49)
[2019-05-17] MEDS: Budesonide 0.5 MG/2 ML NEB INH SCH ×2 (07:13→19:11)
[2019-05-17] MEDS: Polyethylene Glycol 3350 17 GM Packet PO SCH (08:40)
[2019-05-17] MEDS: metFORMIN 500 MG TAB PO SCH ×2 (08:41→17:25)
[2019-05-17] MEDS: guaiFENesin ER 600 MG TAB PO SCH ×2 (08:41→20:41)
[2019-05-17] MEDS: Digoxin 0.125 MG TAB PO SCH (08:41)
[2019-05-17] MEDS: Senokot S 8.6-50 MG TAB PO SCH ×2 (08:42→20:41)
[2019-05-17] MEDS: Donepezil HCl 10 MG TAB PO SCH ×2 (08:42→20:41)
[2019-05-17] MEDS: Ferrous Sulfate 325 MG TAB PO SCH (08:42)
[2019-05-17] MEDS: Lisinopril 10 MG TAB PO SCH (08:42)
[2019-05-17] MEDS: Metoprolol Tartrate 25 MG TAB PO SCH ×2 (08:42→20:41)
[2019-05-17] MEDS: Aspirin Chewable 81 MG TAB PO SCH (08:43)
[2019-05-17] MEDS: Multivitamin W/ Minerals 1 TAB PO SCH (08:43)
[2019-05-17] MEDS: Furosemide 40 MG TAB PO SCH (08:43)
--- NOTE | 2019-05-17 12:29 | PDOC.HOSPP ---
- Subjective Encounter Date: 05/17/19 Encounter Time: 12:25 Subjective: f/u for CHF with bilateral pleural effusions on Lasix po and Levaquin/Vanc/ Zosyn. Remains on O2 supplementation 2L/min NC. - Objective Vital Signs & Weight: Vital Signs (12 hours) Temp Pulse Resp BP BP BP Pulse Ox 05/17/19 11:30 97.6 F 71 20 128/59 L 95 05/17/19 08:42 146/96 H 05/17/19 08:41 87 05/17/19 08:00 97.3 F L 87 16 146/96 H 92 L 05/17/19 07:15 81 16 97 05/17/19 07:13 84 16 97 05/17/19 03:50 97.7 F 80 20 132/63 94 L Weight Weight 139 lb 11.2 oz I&O: 05/16/19 05/17/19 05/18/19 06:59 06:59 06:59 Intake Total 320 1510 Output Total 300 1400 Balance 20 110 Result Diagrams: 05/17/19 03:39 05/17/19 03:39 Additional Labs: Microbiology 05/14/19 03:34 Urine Straight Catheter Urine Culture - Preliminary NO GROWTH AT 24 HOURS 05/13/19 23:32 Venous blood - Right Hand Blood Culture - Preliminary NO GROWTH AT 48 HOURS 05/13/19 23:30 Venous blood - Left Arm Blood Culture - Preliminary NO GROWTH AT 48 HOURS Laboratory Tests 05/13/19 05/15/19 05/16/19 23:04 04:32 04:44 WBC 12.1 H 10.2 Neutrophils % 75.5 H 77.8 H Potassium 3.8 Vancomycin Trough 05/16/19 05/16/19 05/17/19 04:44 04:44 03:39 WBC 12.9 H Neutrophils % 80.1 H 78.4 H Potassium Vancomycin Trough 12.5 Radiology Reviewed by me: Yes (CT chest- bilat pleural effusions with atelectasis) EKG Reviewed by me: Yes (Tele - A-fib in 60's) Hospitalist ROS - Medication Medications: Active Medications Generic Name Dose Route Start Last Admin Trade Name Freq PRN Reason Stop Dose Admin Albuterol/Ipratropium 3 ml 05/14/19 13:00 05/17/19 07:15 Duoneb NEB 3 ml [id number] KAREN Administration Aspirin 81 mg 05/17/19 09:00 05/17/19 08:43 Aspirin Chewable PO 81 mg DAILY KAREN Administration Budesonide 0.5 mg 05/15/19 06:30 05/17/19 07:13 Pulmicort Neb Solution INH 0.5 mg BID-RT KAREN Administration Digoxin 0.125 mg 05/16/19 09:00 05/17/19 08:41 Lanoxin PO 0.125 mg DAILY KAREN Administration Donepezil HCl 10 mg 05/17/19 09:00 05/17/19 08:42 Aricept PO 10 mg DAILY KAREN Administration Donepezil HCl 10 mg 05/16/19 21:00 05/16/19 20:08 Aricept PO 10 mg HS KAREN Administration Ferrous Sulfate 325 mg 05/17/19 09:00 05/17/19 08:42 Feosol PO 325 mg DAILY KAREN Administration Furosemide 40 mg 05/17/19 07:30 05/17/19 08:43 Lasix PO 40 mg DAILY-AC KAREN Administration Guaifenesin 600 mg 05/14/19 21:00 05/17/19 08:41 Mucinex PO 600 mg Q12HR KAREN Administration Piperacillin Sod/Tazobactam 100 mls @ 200 mls/hr 05/14/19 06:00 05/17/19 11: 46 Sod 3.375 gm/ Sodium Chloride IVPB 100 mls Q6HR KAREN Administration Vancomycin HCl 1 gm/ Device 200 mls @ 133.333 mls/hr 05/14/19 06:00 05/17/19 05:49 IVPB 200 mls 0600 KAREN Administration Levofloxacin 750 mg/ Device 150 mls @ 100 mls/hr 05/14/19 12:00 05/17/19 11: 46 IVPB 150 mls 1200 KAREN Administration Iron/Minerals/Multivitamins 1 tab 05/17/19 09:00 05/17/19 08:43 Theragran M PO 1 tab DAILY KAREN Administration Levothyroxine Sodium 88 mcg 05/17/19 06:00 05/17/19 05:43 Synthroid PO 88 mcg 0600 KAREN Administration Lisinopril 10 mg 05/17/19 09:00 05/17/19 08:42 Zestril PO 10 mg DAILY KAREN Administration Memantine 5 mg 05/16/19 21:00 05/17/19 08:42 Namenda PO 5 mg BID KAREN Administration Metformin HCl 250 mg 05/17/19 08:00 05/17/19 08:41 Glucophage PO 250 mg BID-WM KAREN Administration Metoprolol Tartrate 25 mg 05/16/19 21:00 05/17/19 08:42 Lopressor PO 25 mg BID KAREN Administration Pantoprazole Sodium 40 mg 05/14/19 09:00 05/17/19 08:42 Protonix PO 40 mg DAILY KAREN Administration Pantoprazole Sodium 40 mg 05/17/19 09:00 05/17/19 08:43 Protonix PO Not Given DAILY KAREN Polyethylene Glycol 17 gm 05/17/19 09:00 05/17/19 08:40 Miralax PO 17 gm DAILY KAREN Administration Senna/Docusate Sodium 1 tab 05/14/19 09:00 05/17/19 08:42 Senokot S PO 1 tab BID KAREN Administration Sertraline HCl 100 mg 05/17/19 09:00 05/17/19 08:42 Zoloft PO 100 mg DAILY KAREN Administration - Exam General Appearance: NAD, awake alert Eye: PERRL, anicteric sclera ENT: normocephalic atraumatic, no oropharyngeal lesions Neck: supple, symmetric, no JVD, no thyromegaly Heart: no gallops, no rubs, irregular, murmur present Respiratory - other findings: diminished bilat lung lugo, few rhonchi/coarse sounds Gastrointestinal: soft, non-tender, non-distended, normal bowel sounds, no palpable masses Extremities: no cyanosis, no clubbing, no edema Skin: normal turgor, no lesions Neurological: cranial nerve grossly intact, no new deficit Musculoskeletal: normal tone, generalized weakness Psychiatric: oriented to person Hosp A/P (1) Acute on chronic diastolic (congestive) heart failure Code(s): I50.33 - ACUTE ON CHRONIC DIASTOLIC (CONGESTIVE) HEART FAILURE Status : Acute Plan: Continue Lasix 40mg po daily, continue Digoxin/ASA/Lisinopril/Metoprolol, EF 55- 60% (2) Multifocal pneumonia Code(s): J18.9 - PNEUMONIA, UNSPECIFIED ORGANISM Status: Acute Plan: Suspected with potential aspiration component, continue Levaquin/Vanc/Zosyn another 24h then de-escalate coverage (3) Acute respiratory failure Code(s): J96.00 - ACUTE RESPIRATORY FAILURE, UNSP W HYPOXIA OR HYPERCAPNIA Status: Acute Plan: Stable, continue O2 supplementation (4) CKD (chronic kidney disease), stage III Code(s): N18.3 - CHRONIC KIDNEY DISEASE, STAGE 3 (MODERATE) Status: Chronic Plan: Stable, Avoid nephrotoxic meds and limit contrast exposure (5) Dementia Code(s): F03.90 - UNSPECIFIED DEMENTIA WITHOUT BEHAVIORAL DISTURBANCE Status: Chronic Plan: Family support (6) Severe aortic stenosis Code(s): I35.0 - NONRHEUMATIC AORTIC (VALVE) STENOSIS Status: Chronic Plan: No surgical intervention given co-morbid status, advanced age and dementia (7) Severe tricuspid regurgitation Code(s): I07.1 - RHEUMATIC TRICUSPID INSUFFICIENCY Status: Chronic - Plan continue antibiotics, PT/OT, social worker, speech therapy, respiratory therapy, DVT proph w/SCDs Stable currently Continue Lasix daily Continue Levaquin/Zosyn/Vanc another 24h then de-escalate coverage Pulmonary support with Duonebs/Budesonide Palliative care consult Likely back to SNF in 24h
[2019-05-17] MEDS ORDERED: Potassium Chloride 20 MEQ TAB PO SCH (13:15)
[2019-05-18] MEDS: Piperacillin/Tazobactam 3.375 GM in Sodium Chloride 0.9% 100 ML IVPB SCH ×3 (01:02→12:12)
[2019-05-18] MEDS: Levothyroxine Sodium 88 MCG TAB PO SCH (05:36)
[2019-05-18] MEDS: Vancomycin HCl 1 GM in Premix Bag 1 BAG IVPB SCH (06:08)
[2019-05-18] MEDS: Budesonide 0.5 MG/2 ML NEB INH SCH (06:58)
[2019-05-18] MEDS: Donepezil HCl 10 MG TAB PO SCH (07:41)
[2019-05-18] MEDS: Furosemide 40 MG TAB PO SCH (07:41)
[2019-05-18] MEDS: metFORMIN 500 MG TAB PO SCH (07:41)
[2019-05-18] MEDS: guaiFENesin ER 600 MG TAB PO SCH (07:41)
[2019-05-18] MEDS: Digoxin 0.125 MG TAB PO SCH (07:42)
[2019-05-18] MEDS: Lisinopril 10 MG TAB PO SCH (07:42)
[2019-05-18] MEDS: Multivitamin W/ Minerals 1 TAB PO SCH (07:42)
[2019-05-18] MEDS: Ferrous Sulfate 325 MG TAB PO SCH (07:42)
[2019-05-18] MEDS: Senokot S 8.6-50 MG TAB PO SCH (07:42)
[2019-05-18] MEDS: Polyethylene Glycol 3350 17 GM Packet PO SCH (07:43)
[2019-05-18] MEDS: Aspirin Chewable 81 MG TAB PO SCH (07:43)
[2019-05-18] MEDS: Metoprolol Tartrate 25 MG TAB PO SCH (07:43)
[2019-05-18] MEDS ORDERED: Potassium Chloride 10 MEQ TAB PO SCH (08:00)
[2019-05-18 16:35] VITALS: BP 98/62; TEMP 97.7
[2019-05-18] MEDS ORDERED: Magnesium Oxide 400 MG TAB PO SCH (21:00)
--- NOTE | 2019-05-21 01:29 | PQF ---
BOLA SMITH CHARLES DO [id number] CLINICAL DOCUMENTATION CLARIFICATION FORM: POST DISCHARGE Addendum to original discharge summary date: ____ Late entry note date: __ DATE: 05/21/19 ATTN: Nav Olson Please exercise your independent, professional judgment in responding to the clarification form. Clinical indicators are provided on the bottom of this form for your review Please check appropriate box(s): [ ] Aspiration Pneumonia [ ] Empirically treating Gram Negative Pneumonia [ ] Empirically treating Anaerobic Pneumonia [ ] Pneumonia secondary to (specify organism / underlying disease) [ ] Simple Pneumonia (community acquired - nosocomial) [ ] Pneumonia of unknown etiology [ ] Other diagnosis [ ] Unable to determine In addition, please specify: Present on Admission (POA): [ ] Yes [ ] No [ ] Unable to determine For continuity of documentation, please document condition throughout progress notes and discharge summary. Thank You. CLINICAL INDICATORS - SIGNS / SYMPTOMS / LABS HP 05/14 "possible aspiration PNA" HP 05/14 "bilateral pneumonia suspect aspiration given dementia" HP 05/14 "Shortness of breath" ED Notes 05/14 "CC:hypoxia" ED Notes 05/14 "O2 Sat 80%" Chest Xray 05/13 "Dense bibasilar infiltrates and left pleural fluid.Consider pneumonitis at the lung bases" PN 05/14 "admitted with worsening cough/SOB associated with wheezing and hypoxia " HP 05/14 "multifocal PNA" PN 05/17 "PNA-suspected with potential aspiration component" RISK FACTORS ED Notes 05/14-79 years old female ED Notes 05/14-Alzheimer's dementia ED Notes 05/14-Former smoker TREATMENTS: Collected 05/13-CT of chest Collected 05/13-Chest Xray PN 05/17-Oxygen MAR 05/14-Zosyn 3.375gm IV AUG 15-Levaquin 750mg IV (This form is maintained as a part of the permanent medical record) 2014 [employer]. All Rights Reserved [email or web address] [not provided] MTDD
--- NOTE | 2019-05-21 09:20 | DIS ---
DATE OF ADMISSION: 05/14/2019 DATE OF DISCHARGE: 05/18/2019 PRIMARY CARE PHYSICIAN: Dr. Quinten Gandara. DISCHARGE DIAGNOSES: 1. Acute respiratory failure with hypoxia. 2. Acute on chronic diastolic heart failure. 3. Atrial fibrillation with rapid ventricular response. 4. Multifocal pneumonia. 5. Possible aspiration pneumonitis. 6. Elevated troponin. 7. Presumed type 2 myocardial infarction. 8. Hypothyroidism. 9. Dementia. 10. Severe aortic stenosis. 11. Severe tricuspid regurgitation. 12. Gram-negative urinary tract infection. 13. Hypokalemia. 14. Hypomagnesemia. CONSULTS: Cardiology. HOSPITAL COURSE: An 79-year-old female, snf resident with dementia, hypertension, paroxysmal atrial fibrillation, admitted with worsening cough, shortness of breath associated with wheezing and hypoxia. The patient was found to be in atrial fibrillation with rapid ventricular response. Further evaluation with CT angio chest was negative for PE, but showed multifocal opacities. Given history of dementia, there was a concern for aspiration pneumonia, hence the patient was started on broad-spectrum antibiotics as well as Cardizem infusion, bronchodilators, diuretics, and oxygen supplementation. Cardiology consult was obtained in view of the atrial fibrillation. However, vegetable cutter recommended no anticoagulation given history of frequent falls. He also reiterated earlier discussion with the patient's son several years ago that there is no indication for anticoagulation. The patient improved and oxygen requirement significantly came down and was tolerating oral intake. She was subsequently discharged back to the snf for continuation of care. PHYSICAL EXAMINATION: VITAL SIGNS: Temperature 97.7, pulse 92, respiratory rate 20, SpO2 of 92% on room air, blood pressure is 98/62. GENERAL: Elderly female, in no obvious distress. Afebrile. Anicteric. Acyanotic. HEENT: Normocephalic and atraumatic. CARDIOVASCULAR: Irregular rhythm and rate. Systolic murmur noted. RESPIRATORY: Fair air entry bilaterally with few transmitted breath sounds. No obvious rhonchi were appreciated. GI: Full, soft, nontender, nondistended with normal bowel sounds. EXTREMITIES: Grossly normal looking, atraumatic with no obvious edema. LEGAL RECORDS CLERK: Conscious, alert, oriented to person at least. Moves all extremities. Conversational. DISCHARGE CONDITION: Improved. DISCHARGE DISPOSITION: USP. DISCHARGE MEDICATIONS: 1. Acetaminophen 325 one to two q.6 p.r.n. 2. Aspirin 81 mg p.o. daily. 3. p.o. daily. 4. Enalapril 10 mg p.o. daily. 5. Ferrous sulfate 325 mg p.o. daily. 6. Levothyroxine 88 mcg p.o. daily. 7. p.o. daily. 8. Metformin 500 mg p.o. daily. 9. Multivitamin with minerals 1 tablet p.o. daily. 10. MiraLAX 17 g p.o. daily. 11. Sertraline 100 mg p.o. daily. 12. Tramadol 50 mg tablets one to two q.6 p.r.n. for pain. 13. Mucinex 600 mg p.o. b.i.d. 14. Augmentin 875/125 mg p.o. daily. 15. Digoxin 0.125 mg p.o. daily. 16. Furosemide 40 mg p.o. daily. 17. DuoNeb 3 mL nebulization q.4 p.r.n. for shortness of breath and wheezing. 18. Levofloxacin 750 mg p.o. daily for 6 days. 19. Magnesium oxide 400 mg p.o. b.i.d. 20. Metoprolol 25 mg p.o. b.i.d. 21. Zofran ODT p.r.n. as needed. 22. Protonix 40 mg p.o. daily. 23. Potassium chloride 10 mEq p.o. b.i.d. TIME SPENT: This discharge took more than 40 minutes. Job ID: [id number]
--- NOTE | 2019-05-26 14:17 | EKG ---
Test Reason : Blood Pressure : / mmHG Vent. Rate : 126 BPM Atrial Rate : 120 BPM P-R Int : 000 ms QRS Dur : 076 ms QT Int : 310 ms P-R-T Axes : 000 079 000 degrees QTc Int : 448 ms Atrial fibrillation with rapid ventricular response with premature ventricular or aberrantly conducte d complexes Septal infarct , age undetermined Abnormal ECG Confirmed by BRIGIDO LUNDBERG MD ([id number]), scientific publications editor BRINDA THURMAN ([id number]) on 05/26/2019 2:17:06 PM Referred By: Confirmed By:BRIGIDO LUNDBERG MD
== END 2019-05-18 16:35 | DRG 177 ==
LOC: ERS 22:11 → ERHOLD 05-14 01:00 → OBSVTOIN 05-14 01:00 → 2NO 05-14 20:12
PROVIDERS: ADMIT Internal Medicine; ATTEND Internal Medicine
PROC: 3E02340 Introduction of Influenza Vaccine into Muscle, Percutaneous Approach (ICD-10-PCS; principal; 2019-05-15)
PROC: 3E0234Z Introduction of Serum, Toxoid and Vaccine into Muscle, Percutaneous Approach (ICD-10-PCS; 2019-05-15)
DX: J69.0 Pneumonitis due to inhalation of food and vomit (principal); J96.01 Acute respiratory failure with hypoxia; I50.23 Acute on chronic systolic (congestive) heart failure; I13.0 Hypertensive heart and chronic kidney disease with heart failure and stage 1 through stage 4 chronic kidney disease, or unspecified chronic kidney disease; E03.9 Hypothyroidism, unspecified; G30.9 Alzheimer's disease, unspecified; F02.80 Dementia in other diseases classified elsewhere, unspecified severity, without behavioral disturbance, psychotic disturbance, mood disturbance, and anxiety; I48.91 Unspecified atrial fibrillation; I08.1 Rheumatic disorders of both mitral and tricuspid valves; I35.0 Nonrheumatic aortic (valve) stenosis; D63.1 Anemia in chronic kidney disease; N18.3 Chronic kidney disease, stage 3 (moderate); Z90.710 Acquired absence of both cervix and uterus; Z91.81 History of falling; Z87.891 Personal history of nicotine dependence; Z88.2 Allergy status to sulfonamides; Z79.899 Other long term (current) drug therapy
CPT/HCPCS: 36415; 71045; 71275; 80048; 80053; 80202; 81003; 81015; 82550; 82553; 82805; 83605; 83690; 83735; 83880; 84443; 84484; 85025; 87040; 87077; 87086; 87186; 93005; 93306; 94640; 94760; 96361; 96365; 96366; 96367; 96376; J1160; J1940; J1956; J2543; J3370; J3490; J7620; J7626; Q9967

== ENCOUNTER 2019-05-26 14:59 | Inpatient (IN) | payer MEDICARE, MEDICAID ==
[2019-05-26] MEDS ORDERED: Cefepime 1 GM VIAL ONE ×2 (15:48→15:49)
--- NOTE | 2019-05-26 15:57 | RAD ---
EXAM: XR Chest 1 View Portable PROVIDED CLINICAL HISTORY: Dyspnea COMPARISON: 05/13/2019 FINDINGS: Cardiac silhouette is unchanged in appearance. Vascular calcification is again seen. Persistent left basilar pleural and/or parenchymal opacity. No evidence for pneumothorax. IMPRESSION: Persistent left basilar pleural and/or parenchymal opacity.
[2019-05-26 16:06] LABS: #Basophils 0.1 thou/uL (0.0-0.2); #Eosinphils 0.1 thou/uL (0.0-0.7); #Lymphocytes 2.5 thou/uL (1.20-3.40); #Neutrophils 10.8 thou/uL (1.40-6.50); %Basophils 0.6 % (0.0-1.0); %Lymphocytes 17.2 % (21.0-51.0); %Monocytes 6.9 % (0.0-10.0); %Neutrophils 74.3 % (42.0-75.0); Hemoglobin 11.6 g/dL (12.0-16.0); Mean Corpuscular HGB CONC 32.1 g/dL (32.0-36.0); Mean Corpuscular Volume 90.3 fL (78.0-98.0); Mean Platelet Volume 7.1 fL (7.4-10.4); Platelet Count 288 thou/uL (130-400); RBC Distribution Width 14.4 % (11.5-14.5); White Blood Cell (WBC) Count 14.5 thou/uL (4.8-10.8)
[2019-05-26 16:16] LABS: INR-International Normal Ratio 1.4
[2019-05-26 16:19] LABS: Digoxin 1.83 ng/mL (0.8-2.0)
[2019-05-26 16:20] LABS: ALT (SGPT) 9 U/L (8-55); AST (SGOT) 18 U/L (5-34); Albumin 3.8 g/dL (3.4-4.8); Alkaline Phosphatase 74 U/L (40-110); Anion Gap 24 mmol/L (10-20); BUN (Urea Nitrogen) 84 mg/dL (9.8-20.1); Bilirubin, Total 0.3 mg/dL (0.2-1.2); Calc. Creatinine Clearance 0 mL/min (70-130); Calcium 9.6 mg/dL (7.8-10.44); Carbon Dioxide 18 mmol/L (23-31); Chloride 105 mmol/L (98-107); Estimated GFR-MDRD 3; Globulin 3.9 g/dL (2.4-3.5); Glucose 163 mg/dL (83-110); Magnesium 2.4 mg/dL (1.6-2.6); Potassium 5.2 mmol/L (3.5-5.1); Protein, Total 7.7 g/dL (6.0-8.3); Sodium 142 mmol/L (136-145)
[2019-05-26 16:30] LABS: Actual Bicarbonate (HCO3a) 18.4 mEq/L (22-28); Analyzer IN Cardio ER; Base Excess (BEa) -6.6 mEq/L (-2.0 to +3.0); CO2 Tension 34.8 mmHg (35.0-45.0); Calcium, Ionized 1.17 mmol/L (1.12-1.30); Carboxyhemoglobin (COHb) 0.2 gm% (0.0-3.0); Hemoglobin (Hb) 11.5 g/dL (12.0-16.0); O2 Tension (PaO2) 70.3 mmHg (> 60.0); Potassium - ABG Lab 4.35 mmol/L (3.70-5.30); pH, Arterial 7.34 (7.35-7.45)
[2019-05-26 16:31] LABS: Puncture Site RRA
[2019-05-26 16:50] LABS: CKMB 1.1 ng/mL (0-6.6)
[2019-05-26] MEDS ORDERED: Acetaminophen 650 MG Suppository PR PRN (18:53)
[2019-05-26] MEDS ORDERED: Bisacodyl 10 MG SUPP PR PRN (18:53)
[2019-05-26] MEDS ORDERED: Calcium Carbonate 500 MG ChewTAB PO PRN (18:53)
[2019-05-26] MEDS ORDERED: Ondansetron ODT 4 MG TAB PO PRN (18:53)
[2019-05-26] MEDS ORDERED: Ondansetron PF 4 MG/2 ML Vial IVP PRN (18:53)
[2019-05-26] MEDS ORDERED: Acetaminophen 325 MG TAB PO PRN (18:53)
[2019-05-26] MEDS ORDERED: Dextrose 5% in Water 1,000 ML IV PRN (18:57)
[2019-05-26] MEDS ORDERED: Dextrose 50% Abboject 50 ML SYRINGE SLOW IVP PRN (18:57)
[2019-05-26] MEDS ORDERED: Insulin Regular 300 UNITS/3 ML VIAL SC PRN ×2 (18:57)
[2019-05-26] MEDS ORDERED: Polyethylene Glycol 3350 17 GM Packet PO PRN (19:00)
--- NOTE | 2019-05-26 19:11 | CT ---
CT OF ABDOMEN AND PELVIS PERFORMED WITHOUT CONTRAST ENHANCEMENT: 05/26/19 HISTORY: Acute renal insufficiency. Shortness of breath. Small bilateral pleural effusions, left larger than right are noted with left lower lobe parenchymal changes consistent with atelectasis or infiltrate. There is also subsegmental atelectasis in the righ t base. The liver, spleen, and pancreas regions appear unremarkable. Gallbladder region also is normal in ap pearance. Right and left adrenal glands and right and left kidneys are normal in size. No obstruction. Some min imal distention to some of the more proximal small bowel loops are nonspecific. They do not appear si gnificantly dilated. There is no significant periaortic or mesenteric adenopathy. Fairly extensive at herosclerotic change of the aorta is noted. CT OF PELVIS PERFORMED WITHOUT CONTRAST ENHANCEMENT: Sigmoid diverticulosis is noted. There is an area suggestive of some focal wall thickening to the rec tosigmoid colon region. This could just represent some stool but I cannot exclude a mass on the basis of this exam. No inflammatory change noted. The appendix appears unremarkable. There are arthritic changes of the spine. IMPRESSION: 1. Small bilateral pleural effusions with some left lower lobe parenchymal changes suggestive of infiltrate. Atelectatic changes seen in the right base. 2. No evidence of obstruction of either kidney. 3. Sigmoid diverticulosis. 4. Questionable rectosigmoid mass. This could be transitory contraction or possible stool but I cannot exclude the presence of a mass and would suggest consideration for colonoscopy. POS: [facility]
[2019-05-26 20:08] LABS: CKMB 1.2 ng/mL (0-6.6)
[2019-05-26] MEDS ORDERED: Piperacillin/Tazobactam 0.75 GM, Admixture Fee 1 EACH in Sodium Chloride 0.9% 50 ML IVPB SCH (22:15)
--- NOTE | 2019-05-26 22:15 | CON ---
DATE OF CONSULTATION: HISTORY OF PRESENT ILLNESS: Ms. Nicolas is an 79-year-old white female, correction patient, admitted for hypoxemia and generalized malaise. During the initial evaluation, patient was noted to be in acute kidney injury with a creatinine of around 10. Examination by the ER physician felt that she may be volume depleted. 1 L of fluid was given. She is currently on maintenance normal saline at 100 mL/h. Please note that patient is not hyperkalemic or in volume overload. CT scan of the abdomen and pelvis did show finding of a small bilateral pleural effusion with some left lower lobe parenchymal changes suggestion of an infiltrate. No evidence of obstruction of either kidney. We are now being consulted for management of her acute kidney injury. REVIEW OF SYSTEMS: Positive for forgetfulness. No nausea. No vomiting. Decreased p.o. intake. No gross hematuria, no dysuria, no frequency. No fever or chills. ?mild shortness of breath. No diarrhea. No constipation. HOME MEDICATIONS: Include the followin. Patient is on Augmentin 875/125 one tablet p.o. b.i.d. 2. Aspirin 81 mg daily. 3. Digoxin 0.125 mg p.o. daily. 4. Aricept 10 mg once a day. 5. Enalapril 10 mg once a day. 6. Ferrous sulfate 325 mg once a day. 7. Furosemide 40 mg daily. 8. DuoNeb q.4 p.r.n. 9. Levaquin 750 mg daily. 10. Levothyroxine 88 mcg daily. 11. Magnesium oxide 400 mg p.o. b.i.d. 12. Metoprolol tartrate 25 mg p.o. b.i.d. 13. Multivitamin daily. 14. Protonix 40 mg tablet once a day. 15. MiraLAX 17 g daily. 16. Sertraline 100 mg daily. 17. KCl 10 mEq p.o. b.i.d. 18. Metformin 500 mg daily. 19. Tramadol p.r.n. 20. Memantine/donepezil 14/10 one tablet once a day. PAST MEDICAL HISTORY: History of atrial fibrillation, dementia, recently status post pneumonia, hypothyroidism, hypertension, GERD, depression, type 2 diabetes mellitus, aortic stenosis, status post UTI, coronary artery disease. PAST SURGICAL HISTORY: Patient is status post hysterectomy, status post bladder sling placement, and status post bilateral cataract surgery. SOCIAL HISTORY: Patient is currently in a correction patient. She has 2 children. She does not smoke. No alcohol intake. 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 Alcohol, none. Denies any blood transfusion. ALLERGIES: SULFA. TRAUMA: None. IMMUNIZATIONS: Up to date. HOSPITALIZATIONS: Please see past medical history. FAMILY HISTORY: No family history of ESRD. PHYSICAL EXAMINATION: VITAL SIGNS: Blood pressure is 138/50, heart rate 57, respiratory rate 17, temperature 97.9, and O2 saturation currently is 97% on room air. GENERAL: Patient is awake, alert, lethargic, not in overt distress. SKIN: Decreased turgor. HEENT: She has pinkish conjunctivae. Anicteric sclerae. NECK: No neck mass. No carotid bruits. No JVD. CHEST: No deformities. LUNGS: Clear breath sounds. HEART: Normal sinus rhythm. No murmurs, gallops, or rubs. ABDOMEN: Globular, soft, nontender. No masses. EXTREMITIES: No edema. No deformities NEUROLOGICAL: No tremors. No asterixis. There is a positive due to her dementia. LABORATORY DATA: On May 26, 2019, white count 14.5, hemoglobin 11.6. Sodium 142, potassium 5.2, chloride 105, carbon dioxide 18, BUN 84, creatinine 10.9, glucose 163, and calcium 9.6. AST 18, ALT 9. Troponin I 0.191. May 17, 2019, BUN 14, creatinine 1.03. Urinalysis of May 14, 2019, there is protein, wbc [address] scan of the abdomen and pelvis, there is no renal obstruction. Chest x-ray, no CHF. ASSESSMENT AND PLAN: Acute kidney injury, consider hemodynamically-mediated renal dysfunction secondary to decreased p.o. intake as well as the current use of enalapril and furosemide. She was given 1 L of normal saline and currently we are maintaining her on normal saline at 100 mL/h. There is no indication for any emergent hemodialysis. My bias is a conservative management with this patient was dementia and has an advanced age of 79. Please note, potassium is noted to be acceptable. Case discussed with the hospitalist. Continue current management. Recheck basic metabolic profile, CBC in the a.m. Job ID: [id number]
[2019-05-26] MEDS: Heparin 5,000 UNITS/ML VIAL SC SCH (23:39)
[2019-05-26] MEDS: Metoprolol Tartrate 25 MG TAB PO SCH (23:40)
[2019-05-26] MEDS: Famotidine 20 MG TAB PO SCH (23:43)
[2019-05-26] MEDS: Senokot S 8.6-50 MG TAB PO SCH (23:43)
[2019-05-26] MEDS: Famotidine/PF 20 mg/2ml Vial SLOW IVP SCH (23:44)
[2019-05-26] MEDS: Piperacillin/Tazobactam 2.25 GM in Sodium Chloride 0.9% 100 ML IVPB SCH (23:44)
[2019-05-26] MEDS: Sodium Bicarbonate 150 MEQ in Dextrose 5% in Water 1,000 ML IV SCH (23:55)
[2019-05-27 00:24] LABS: Bilirubin Negative (Negative); Blood, Urine Trace (Negative); Clarity Clear (Clear); Glucose, Urine (Dipstick) Normal (Negative); Leukocyte 250 Leu/uL (Negative); Nitrite Negative (Negative); Protein, Urine (Dipstick) 10 mg/dL (Neg-Trace); RBC/HPF 0-3 HPF (0-3); Squamous Epithelial 0-3 HPF (0-3); Urobilinogen Normal mg/dL (Less than 2)
[2019-05-27 00:25] LABS: Bacteria/HPF 1+ HPF (None Seen)
[2019-05-27] MEDS: Piperacillin/Tazobactam 2.25 GM in Sodium Chloride 0.9% 100 ML IVPB SCH ×3 (05:34→20:42)
[2019-05-27] MEDS: Levothyroxine Sodium 88 MCG TAB PO SCH (05:35)
[2019-05-27 08:07] LABS: Anion Gap 18 mmol/L (10-20); BUN (Urea Nitrogen) 83 mg/dL (9.8-20.1); Calc. Creatinine Clearance 4 mL/min (70-130); Calcium 8.9 mg/dL (7.8-10.44); Carbon Dioxide 26 mmol/L (23-31); Chloride 103 mmol/L (98-107); Estimated GFR-MDRD 4; Glucose 133 mg/dL (83-110); Potassium 4.3 mmol/L (3.5-5.1); Sodium 143 mmol/L (136-145)
[2019-05-27] MEDS: Metoprolol Tartrate 25 MG TAB PO SCH ×2 (08:27→20:47)
[2019-05-27] MEDS: Senokot S 8.6-50 MG TAB PO SCH ×2 (08:27→20:47)
[2019-05-27] MEDS: Aspirin 81 mg Enteric Coated Tablet PO SCH (08:27)
[2019-05-27] MEDS: Heparin 5,000 UNITS/ML VIAL SC SCH ×2 (08:28→20:47)
[2019-05-27] MEDS: Sodium Bicarbonate 150 MEQ in Dextrose 5% in Water 1,000 ML IV SCH (08:48)
--- NOTE | 2019-05-27 09:23 | HP ---
The patient was seen and examined on 26 May 2019 in the emergency room. CHIEF COMPLAINT: Shortness of breath. HISTORY OF PRESENT ILLNESS: The patient is an 79-year-old female with dementia, diastolic heart failure with recent hospitalization, currently residing at [facility] under the care of Dr. Katina Kaur, was brought in to the emergency room with above complaints. The patient was admitted from 14 May 2019 to 18 May 2019 with cough and shortness of breath. She was diagnosed with multifocal pneumonia with atrial fibrillation with rapid ventricular response. Pulmonary embolism was ruled out. She required antibiotics and Cardizem drip. She was also evaluated by Cardiology. No anticoagulation was started due to advanced age and frequent falls. She was discharged to [facility] on 18 May 2019. The patient was sent to the emergency room with worsening shortness of breath. When EMS arrived, the patient was found to have white complex tachycardia requiring lidocaine. She received DuoNebs and was brought into the emergency room for evaluation. In the emergency room, her workup was consistent with severe acute kidney injury with creatinine 10.91, with creatinine of 1.03 on 17 May 2019. She was started on IV fluids. No other information is available from the patient due to current mentation. She is alert, awake, and oriented x2 at baseline. She has poor appetite over the last week. PAST MEDICAL HISTORY: 1. Swallow dysfunction. 2. Dementia. 3. Hypothyroidism. 4. Severe aortic stenosis. 5. Recent admission for atrial fibrillation, respiratory failure, diastolic heart failure, and multifocal pneumonia. 6. Chronic anemia. 7. GERD. 8. Diabetes mellitus type 2. 9. Hypertension. PAST SURGICAL HISTORY: 1. Hysterectomy. 2. Bladder sling. 3. Right hip surgery. ALLERGIES: THE PATIENT IS ALLERGIC TO SULFA. CODE STATUS: Verified with the DP. The patient is a do not resuscitate. CURRENT MEDICATIONS: [facility]; 1. Augmentin 875 mg b.i.d., to be discontinued on 29 May 2019. 2. Aspirin 81 mg daily. 3. Clonidine 0.1 mg as needed. 4. Digoxin 125 mcg daily. 5. Ferrous sulfate 325 mg daily. 6. Lasix 40 mg daily. 7. MiraLAX daily. 8. DuoNebs three times a day. 9. Levaquin 750 mg daily. 10. Magnesium oxide 400 mg daily. 11. Metformin ER 500 mg daily. 12. Metoprolol tartrate 25 mg b.i.d. 13. Multivitamin one tablet daily. 14. Potassium chloride 10 mEq daily. 15. Memantine/Aricept 14/10 daily. 16. Synthroid 88 mcg daily. 17. Tramadol as needed. 18. Tylenol as needed. 19. Vasotec 10 mg daily. 20. Zofran as needed. 21. Zoloft 100 mg daily. SOCIAL HISTORY: As discussed above. The patient is currently at [facility] for half-way. FAMILY HISTORY: Negative for heart disease. REVIEW OF SYSTEMS: Cannot be obtained due to current mentation. PHYSICAL EXAMINATION: VITAL SIGNS: On ER arrival, temperature 97.7, respirations 20, pulse rate of 77 , with a blood pressure of 127/63 with O2 saturation of 100% on room air. GENERAL: An 79-year-old female with altered mentation. HEENT: Head, atraumatic and normocephalic. Sclerae anicteric. Dry mucous membranes. No oral lesion. NECK: Supple. No JVD appreciated. No carotid bruit. LUNGS: Showed diminished air entry at bilateral bases with rhonchi and rales especially at bases. No wheezing. No accessory muscle use. HEART: S1 and S2 present. Rhythm is probably irregular. 3/6 systolic murmur over the aortic area. No heaves or pulsation. ABDOMEN: Soft, nontender. Bowel sounds present. No rebound or guarding. No costovertebral angle tenderness. EXTREMITIES: No edema or calf tenderness. NEUROLOGY AND PSYCHIATRY: Limited due to current mentation. SKIN: Warm and dry. LYMPH NODE: No palpable lymph nodes in the neck. LABORATORY FINDINGS: Digoxin level was 1.83. Ketones 0.46. Troponin 0.191. BNP 784. WBC 14.5 with hemoglobin 11.6. ABG showed pH of 7.34 with pCO2 of 34.8, PO2 of 70.3 with bicarbonate 18.4. Potassium on admission was 5.2 with a bicarbonate of 18. Blood cultures have been sent. IMAGING STUDIES: Chest x-ray by my review showed bilateral lower lobe infiltrates. CT abdomen and pelvis without contrast showed left lower lobe infiltrate with sigmoid diverticulosis and questionable rectosigmoid mass. There was no obstructive uropathy. EKG by my review showed possible atrial fibrillation. IMPRESSION: 1. Toxic metabolic encephalopathy, multifactorial. 2. Acute kidney injury on chronic kidney disease stage 3 with metabolic acidosis and hyperkalemia. 3. Mild starvation ketosis, probably secondary to poor oral intake over the last week. 4. Ventricular arrhythmia per EMS requiring Lidocaine. 5. Type 2 myocardial infarction. 6. Recent hospitalization for atrial fibrillation, respiratory failure as well as pneumonia. 7. Alzheimer dementia. 8. Hypothyroidism. 9. Hypertension. 10. Sigmoid diverticulosis. 11. Questionable rectosigmoid mass on the CT. Primary care physician advised to follow. 12. Chronic diastolic heart failure. 13. Chronic atrial fibrillation, not an anticoagulation candidate. 14. Swallow dysfunction, currently on mechanical soft with regular/thin liquid at the nursing facility. 15. Severe aortic stenosis. 16. Severe tricuspid regurgitation. 17. Recent urinary tract infection. 18. Chronic anemia. PLAN: The patient will be monitored on the telemetry unit. We will start her on IV fluids with sodium bicarbonate. I discussed with Dr. Ibrahim. We will hold dialysis for now. DNR was verified. Empiric antibiotics will be started for aspiration pneumonia. We will consult Speech Therapy. DVT prophylaxis. We will resume metoprolol at low dose. We will hold metformin, Lasix, Vasotec, and Zoloft due to significant acute kidney injury. Obstructive uropathy has been ruled out. Palliative Care Team will be consulted as well. Insulin sliding scale. Consult Cardiology. Plan of care was discussed with the family in detail. They stated understanding. Please note, that patient was seen and examined on 26 May 2019. Job ID: [id number] MTD[facility]
[2019-05-27] MEDS: Sodium Bicarbonate 50 MEQ in Dextrose 5 %-0.45 % NaCl 1,000 ML IV SCH (10:17)
--- NOTE | 2019-05-27 10:31 | PRG ---
DATE OF SERVICE: 05/27/2019 SUBJECTIVE: Ms. Nicolas is an 79-year-old white female, who was admitted for confusion and was noted to be in acute kidney injury. At that time, we felt that she may have a hemodynamically-mediated renal dysfunction. Empiric volume repletion is being done. Creatinine seems to be stabilizing, but remains unimproved. Her creatinine this morning was noted at 10.18 and on admission, it was 10.91. She also made 300+ of urine output overnight. Currently, she is on isotonic bicarbonate. No other complaints. The patient denies any chest pain or shortness of breath. OBJECTIVE: VITAL SIGNS: Blood pressure 123/72, heart rate 75, respiratory rate 18, pulse ox 94% on room air, and temperature 97.2. GENERAL: Noted to be awake, not in distress, comfortable. SKIN: Adequate turgor. HEENT: She has pinkish conjunctivae. Anicteric sclerae. NECK: No neck mass. No carotid bruits. No JVD. CHEST: No deformities. LUNGS: Clear breath sounds. No wheezing. No crackles. HEART: Normal sinus rhythm. No murmur. No gallops. No rubs. ABDOMEN: Globular, soft, and nontender. No masses. EXTREMITIES: No edema. No deformities. MEDICATIONS: Medications of May 27, 2019, was reviewed. LABORATORY DATA: Laboratories of May 27, 2019; sodium 143, potassium 4.3, chloride 103, carbon dioxide 26, BUN 83, creatinine 10.18, glucose 133, and calcium 8.9. White count 14.5, hemoglobin 11.6. ASSESSMENT AND PLAN: Acute kidney injury - consider hemodynamically-mediated renal dysfunction. Continue IV hydration. Again, no indication for any emergent hemodialysis. She is making some urine. If no significant improvement in the next 24 to 48 hours, the possibility of a superimposed acute tubular necrosis remains with this patient. For the moment, agree with current management. Holding off any dialysis. Case discussed at length with the patient's son. Continue IV fluid. Recheck basic metabolic panel and CBC in a.m. Job ID: [id number]
--- NOTE | 2019-05-27 16:33 | PDOC.HOSPP ---
- Subjective Encounter Date: 05/27/19 Encounter Time: 12:00 Subjective: Patient seen and examined for YAHAIRA/Encephalopathy. Poor appetite. Mentation slowly improving. No CP. No new complaints. No overnight events - Objective Vital Signs & Weight: Vital Signs (12 hours) Temp Pulse Resp BP Pulse Ox 05/27/19 15:05 97.4 F L 80 20 103/51 L 94 L 05/27/19 11:05 96.0 F L 74 18 157/70 H 94 L 05/27/19 08:00 97.2 F L 75 18 123/72 94 L 05/27/19 06:00 97.2 F L 87 18 110/69 94 L 05/27/19 04:42 97.2 F L 87 18 110/69 94 L Weight Weight 124 lb I&O: 05/26/19 05/27/19 05/28/19 06:59 06:59 06:59 Output Total 250 Balance -250 Result Diagrams: 05/26/19 15:30 05/27/19 07:44 Additional Labs: Accuchecks 05/27/19 05/27/19 05/27/19 12:08 10:41 04:50 POC Glucose 150 H 149 H 157 H 05/26/19 23:07 POC Glucose 112 H EKG Reviewed by me: Yes (Tele Afib) Hospitalist ROS - Review of Systems Respiratory: denies: cough, dry, shortness of breath, hemoptysis, SOB with excertion, pleuritic pain, sputum, wheezing, other Cardiovascular: denies: chest pain, palpitations, orthopnea, paroxysmal noc. dyspnea, edema, light headedness, other - Medication Medications: Active Medications Generic Name Dose Route Start Last Admin Trade Name Freq PRN Reason Stop Dose Admin Aspirin 81 mg 05/27/19 09:00 05/27/19 08:27 Ecotrin PO 81 mg DAILY KAREN Administration Famotidine 20 mg 05/26/19 21:00 05/26/19 23:44 Pepcid SLOW IVP Not Given QPM KAREN Famotidine 20 mg 05/26/19 21:00 05/26/19 23:43 Pepcid PO 20 mg QPM KAREN Administration Heparin Sodium (Porcine) 5,000 units 05/26/19 21:00 05/27/19 08:28 Heparin SC 5,000 units BID KAREN Administration Piperacillin Sod/Tazobactam 100 mls @ 200 mls/hr 05/26/19 22:00 05/27/19 14: 13 Sod 2.25 gm/ Sodium Chloride IVPB 100 mls Q8HR KAREN Administration Sodium Bicarbonate 50 meq/ 1,050 mls @ 100 mls/hr 05/27/19 08:30 05/27/19 10: 17 Dextrose/Sodium Chloride IV 1,050 mls .[id number] KAREN Administration Levothyroxine Sodium 88 mcg 05/27/19 06:00 05/27/19 05:35 Synthroid PO 88 mcg 0600 KAREN Administration Metoprolol Tartrate 12.5 mg 05/26/19 21:00 05/27/19 08:27 Lopressor PO 12.5 mg BID KAREN Administration Senna/Docusate Sodium 1 tab 05/26/19 21:00 05/27/19 08:27 Senokot S PO 1 tab BID KAREN Administration - Exam General Appearance: NAD Heart: no gallops, no rubs, normal peripheral pulses, irregular Respiratory: no wheezes, normal chest expansion, no tachypnea, rales, rhonchi Gastrointestinal: soft, non-tender, non-distended, normal bowel sounds Extremities: no cyanosis, no clubbing, no edema Extremities - other findings: no calf tenderness Neurological: no new deficit Hosp A/P - Plan DVT proph w/heparin, DVT proph w/SCDs Toxic metabolic encephalopathy, multifactorial. Acute kidney injury on chronic kidney disease stage 3 with metabolic acidosis and hyperkalemia. Ventricular arrhythmia per EMS requiring Lidocaine. Mild starvation ketosis due to poor oral intake. Type 2 myocardial infarction - resolved Chronic anemia. Recent hospitalization for atrial fibrillation, respiratory failure as well as pneumonia. Alzheimer dementia. Hypothyroidism. Hypertension. Sigmoid diverticulosis. Questionable rectosigmoid mass on the CT. PCP to follow. Chronic diastolic heart failure. Chronic atrial fibrillation, not an anticoagulation candidate. Swallow dysfunction, currently on mechanical soft with regular/thin liquid at the nursing facility. Severe aortic stenosis. Severe tricuspid regurgitation. Recent urinary tract infection. DNR PLAN: Change IVF to D5 1/2 NS with 50 meq bicarb Cont IV Zosyn Cont ASA with low dose Metoprolol Await Cardio input Cont sliding scale AM labs Cont other meds
--- NOTE | 2019-05-27 20:14 | CON ---
DATE OF CONSULTATION: HISTORY OF PRESENT ILLNESS: Shaun Nicolas is an 79-year-old white female initially evaluated when she was admitted in August 2016. She had been told for years that she had a heart murmur. She had a fall at home and underwent ORIF of the left hip. She described episodes of PND when I saw her after surgery. She denied any chest discomfort. Ejection fraction was 55% to 60% without evidence of diastolic dysfunction. There was mild mitral and mild tricuspid regurgitation. The peak gradient across the aortic valve was 58 mm, mean gradient of 39 mm. Aortic valve area 0.57 cm2. She returned to the office on October 25, 2016, and still had not recovered very well from her hip ORIF. The son, patient, and I all agreed that more recovery time was needed before dressing the aortic stenosis. We agreed that she should return 2 months later to rediscuss the situation. She had a 2-month followup scheduled, but did not return for that and I did not see her from October 2016 until she was admitted here earlier this month in May 2019. After the hip ORIF, she went to [facility] and basically was confined to a wheelchair. She also had several falls in the bathroom at [facility]. She is noted to have increased dyspnea as well as hypoxemia and was brought to the emergency room. She was in atrial fibrillation with fast ventricular response. Started on intravenous Cardizem and initially converted back to sinus rhythm, but then went back to atrial fibrillation. Her rate appeared to be controlled in the mid to low 90s. She denied any chest discomfort. It was recommended that she not be anticoagulated due to frequent falls. She was diuresed and her O2 saturation improved. She was discharged back to the intermediate. She now is admitted with increased shortness of breath. On the way here, she was seen to have a wide-complex tachycardia. During previous admission, she was seen to have nonsustained ventricular tachycardia. She was found to have significant worsening of her creatinine and is admitted for further evaluation. PAST MEDICAL HISTORY: Hypertension, hypothyroidism, anemia, dementia, aortic stenosis, paroxysmal atrial fibrillation, nonsustained ventricular tachycardia, diastolic heart failure, chronic anemia. MEDICATIONS: 1. Augmentin 1 b.i.d. 2. Aspirin daily. 3. Catapres 0.1 daily. 4. Digoxin 0.125 daily. 5. Vasotec 10 mg daily. 6. Lasix 40 mg q.a.m. 7. DuoNeb. 8. Levaquin 750 daily. 9. Levothyroxine 88 mcg daily. 10. Magnesium oxide 400 b.i.d. 11. Metformin 500 daily. 12. Metoprolol 25 b.i.d. 13. Potassium 10 mEq daily. 14. Sertraline 100 daily. ALLERGIES: SULFA. SOCIAL HISTORY: She stopped smoking 20 years ago. She does not drink. REVIEW OF SYSTEMS: Difficult to obtain due to her dementia. PHYSICAL EXAMINATION: VITAL SIGNS: Blood pressure 157/70, pulse 74. HEENT: PERRL. NECK: Supple. CHEST: Reveals rales at the bases. CARDIOVASCULAR: S1 and S2 normal without any S3 or S4. There is a 2/6 systolic ejection murmur. ABDOMEN: Normal bowel sounds without tenderness. EXTREMITIES: Reveal no clubbing, cyanosis, or edema. NEUROLOGIC: Grossly intact. LABORATORY DATA: EKG reveals probable atrial fibrillation with ventricular bigeminy, possible septal lateral infarction. Sodium 143, potassium 4.3, chloride 103, carbon dioxide 26, BUN 83, creatinine 10.18. Troponin I 0.191. BNP 784.5. It is of note that 10 days ago, her creatinine was 1.03. Hemoglobin 11.6, hematocrit 36.1, white count 14,500, platelets 288,000. INR 1.4. PH 7.34, pCO2 of 34.8, pO2 of 70.3. IMPRESSION: 1. Repeated hypoxic respiratory failure. 2. Severe acute kidney injury, probably due to diuretics, Vasotec, and decreased cardiac output from severe aortic stenosis. 3. Cardiac arrhythmias including atrial fibrillation, nonsustained ventricular tachycardia, probably all related to her aortic stenosis. 4. Hypertension. 5. Hypothyroidism. 6. Dementia. 7. Multiple falls. PLAN: From a cardiac standpoint, the patient is following the natural history of severe aortic stenosis. Two years ago, the decision was made not to pursue treatment of this initially and then the patient did not return for followup. Certainly, her nonsustained ventricular tachycardia is probably related to her severe aortic stenosis. From a Cardiology standpoint, there is nothing that can really be offered and she is following the natural history of her disease. I would certainly recommend hospice with her. Since there is nothing to offer from a Cardiology standpoint, I will sign off. Job ID: [id number] [facility]
[2019-05-27] MEDS: Famotidine 20 MG TAB PO SCH (20:47)
[2019-05-28] MEDS: Sodium Bicarbonate 50 MEQ in Dextrose 5 %-0.45 % NaCl 1,000 ML IV SCH ×3 (03:15→17:40)
[2019-05-28 05:01] LABS: #Basophils 0.1 thou/uL (0.0-0.2); #Eosinphils 0.3 thou/uL (0.0-0.7); #Lymphocytes 1.5 thou/uL (1.20-3.40); #Monocytes 1.1 thou/uL (0.11-0.59); #Neutrophils 11.7 thou/uL (1.40-6.50); %Basophils 0.6 % (0.0-1.0); %Lymphocytes 10.1 % (21.0-51.0); %Monocytes 7.5 % (0.0-10.0); %Neutrophils 79.7 % (42.0-75.0); Hemoglobin 10.6 g/dL (12.0-16.0); Mean Corpuscular HGB CONC 32.3 g/dL (32.0-36.0); Mean Corpuscular Hemoglobin 28.7 pg (27.0-31.0); Mean Platelet Volume 7.2 fL (7.4-10.4); Platelet Count 252 thou/uL (130-400); RBC Distribution Width 14.1 % (11.5-14.5); Red Blood Cell (RBC) Count 3.67 mill/uL (4.20-5.40); White Blood Cell (WBC) Count 14.7 thou/uL (4.8-10.8)
[2019-05-28] MEDS: Famotidine/PF 20 mg/2ml Vial SLOW IVP SCH ×2 (05:19→21:47)
[2019-05-28 05:20] LABS: Anion Gap 21 mmol/L (10-20); BUN (Urea Nitrogen) 79 mg/dL (9.8-20.1); Calc. Creatinine Clearance 4 mL/min (70-130); Calcium 8.6 mg/dL (7.8-10.44); Carbon Dioxide 22 mmol/L (23-31); Chloride 103 mmol/L (98-107); Estimated GFR-MDRD 4; Glucose 157 mg/dL (83-110); Potassium 4.3 mmol/L (3.5-5.1); Sodium 142 mmol/L (136-145)
[2019-05-28] MEDS: Levothyroxine Sodium 88 MCG TAB PO SCH (06:05)
[2019-05-28] MEDS: Piperacillin/Tazobactam 2.25 GM in Sodium Chloride 0.9% 100 ML IVPB SCH ×3 (06:54→21:49)
[2019-05-28] MEDS: Metoprolol Tartrate 25 MG TAB PO SCH ×2 (09:15→21:49)
[2019-05-28] MEDS: Heparin 5,000 UNITS/ML VIAL SC SCH ×2 (09:16→21:48)
[2019-05-28] MEDS: Senokot S 8.6-50 MG TAB PO SCH ×2 (09:16→21:49)
[2019-05-28] MEDS: Aspirin 81 mg Enteric Coated Tablet PO SCH (09:16)
--- NOTE | 2019-05-28 09:29 | PRG ---
DATE OF SERVICE: 05/28/2019 SUBJECTIVE: Ms. Nicolas is an 79-year-old white female, who was initially admitted for confusion and was found to be in acute kidney injury. Empiric volume repletion is being done with a slight improvement in renal function. She is more awake today. She voices no new complaints. No chest pain or shortness of breath. OBJECTIVE: VITAL SIGNS: Blood pressure 136/60, heart rate 74, respiratory rate 18, temperature 97.6, pulse ox 96%. GENERAL: Awake, alert, supine, and comfortable, not in distress. SKIN: Adequate turgor. HEENT: She has pinkish conjunctivae. Anicteric sclerae. NECK: No neck mass. No carotid bruits. No JVD. CHEST: No deformities. LUNGS: Clear breath sounds. HEART: Normal sinus rhythm. No murmur. No gallops. No rubs. ABDOMEN: Globular, soft, and nontender. No masses. EXTREMITIES: No edema. No deformities. MEDICATIONS: Medications of May 28, 2019, were reviewed. LABORATORY DATA: Laboratories of May 28, 2019: White count 14.7, hemoglobin 10.6. Sodium 142, potassium 4.3, chloride 103, carbon dioxide 22, BUN 79, creatinine 9.09, GFR 4 mL/minute, calcium 8.6. Urine output, last 24 hours, noted at 950 mL. ASSESSMENT AND PLAN: Acute kidney injury - considering hemodynamically-mediated renal dysfunction. Continue gentle volume repletion with this patient. There is no indication for any dialytic intervention. I feel that the patient's multiple medical problems, underlying dementia, and advanced age make her a poor dialysis candidate. For the moment, continue supportive care. Please note, creatinine is slowly improving. We will recheck CBC and basic metabolic panel in a.m. Job ID: [id number]
--- NOTE | 2019-05-28 17:57 | PDOC.HOSPP ---
- Subjective Encounter Date: 05/28/19 Encounter Time: 10:45 Subjective: Patient seen and examined for Encephalopathy/YAHAIRA. Mentation improving. No fever/ chills. No new complaints. No overnight events - Objective Vital Signs & Weight: Vital Signs (12 hours) Temp Pulse Resp BP Pulse Ox 05/28/19 15:40 97.4 F L 61 18 139/65 94 L 05/28/19 11:50 97.6 F 93 20 136/60 91 L 05/28/19 07:45 97.6 F 74 18 136/60 96 Weight Admit Weight 124 lb Weight 124 lb I&O: 05/27/19 05/28/19 05/29/19 06:59 06:59 06:59 Intake Total 200 2078 300 Output Total 300 950 Balance -100 1128 300 Result Diagrams: 05/29/19 03:34 05/29/19 03:34 Additional Labs: Accuchecks 05/28/19 05/28/19 05/28/19 16:31 10:22 05:52 POC Glucose 178 H 174 H 159 H 05/27/19 05/27/19 23:57 21:02 POC Glucose 173 H 195 H Laboratory Tests 05/28/19 04:22 BUN 79 H Creatinine 9.09 H EKG Reviewed by me: Yes (Tele Afib) Hospitalist ROS - Review of Systems ROS unobtainable: due to mental status - Medication Medications: Active Medications Generic Name Dose Route Start Last Admin Trade Name Freq PRN Reason Stop Dose Admin Aspirin 81 mg 05/27/19 09:00 05/28/19 09:16 Ecotrin PO 81 mg DAILY KAREN Administration Famotidine 20 mg 05/26/19 21:00 05/28/19 05:19 Pepcid SLOW IVP Not Given QPM KAREN Famotidine 20 mg 05/26/19 21:00 05/27/19 20:47 Pepcid PO 20 mg QPM KAREN Administration Heparin Sodium (Porcine) 5,000 units 05/26/19 21:00 05/28/19 09:16 Heparin SC 5,000 units BID KAREN Administration Piperacillin Sod/Tazobactam 100 mls @ 200 mls/hr 05/26/19 22:00 05/28/19 14: 40 Sod 2.25 gm/ Sodium Chloride IVPB 100 mls Q8HR KAREN Administration Sodium Bicarbonate 50 meq/ 1,050 mls @ 100 mls/hr 05/27/19 08:30 05/28/19 17: 40 Dextrose/Sodium Chloride IV 1,050 mls .[id number] KAREN Administration Levothyroxine Sodium 88 mcg 05/27/19 06:00 05/28/19 06:05 Synthroid PO 88 mcg 0600 KAREN Administration Senna/Docusate Sodium 1 tab 05/26/19 21:00 05/28/19 09:16 Senokot S PO 1 tab BID KAREN Administration - Exam General Appearance: NAD Heart: no gallops, irregular Respiratory: no rales, no ronchi Gastrointestinal: soft, non-distended, normal bowel sounds Extremities: no edema Hosp A/P - Plan PT/OT, speech therapy, DVT proph w/heparin, DVT proph w/SCDs Toxic metabolic encephalopathy, multifactorial. Acute kidney injury on chronic kidney disease stage 3 Metabolic acidosis Hyperkalemia - resolved Ventricular arrhythmia per EMS requiring Lidocaine. Mild starvation ketosis due to poor oral intake. Type 2 myocardial infarction - resolved Chronic anemia. Recent hospitalization for atrial fibrillation, respiratory failure/pneumonia. Alzheimer dementia. Hypothyroidism. Hypertension. Sigmoid diverticulosis. ?Rectosigmoid mass on the CT. PCP to follow. Chronic diastolic heart failure. Chronic atrial fibrillation, not an anticoagulation candidate. Swallow dysfunction. Severe aortic stenosis. Severe tricuspid regurgitation. Recent urinary tract infection. DNR PLAN: Cont D5 1/2 NS with 50 meq bicarb Cont IV Zosyn Cont ASA Increase Metoprolol to 25 BID Cont sliding scale - change to ACHS AM labs Cont other meds
[2019-05-28] MEDS: Famotidine 20 MG TAB PO SCH (21:48)
[2019-05-29] MEDS: Sodium Bicarbonate 50 MEQ in Dextrose 5 %-0.45 % NaCl 1,000 ML IV SCH (03:17)
[2019-05-29 04:16] LABS: #Basophils 0.1 thou/uL (0.0-0.2); #Eosinphils 0.3 thou/uL (0.0-0.7); #Lymphocytes 1.6 thou/uL (1.20-3.40); #Monocytes 1.1 thou/uL (0.11-0.59); #Neutrophils 10.9 thou/uL (1.40-6.50); %Basophils 0.7 % (0.0-1.0); %Eosinophils 1.8 % (0.0-10.0); %Lymphocytes 11.5 % (21.0-51.0); %Monocytes 7.7 % (0.0-10.0); %Neutrophils 78.3 % (42.0-75.0); Hemoglobin 10.2 g/dL (12.0-16.0); Mean Corpuscular HGB CONC 32.8 g/dL (32.0-36.0); Mean Corpuscular Hemoglobin 29.1 pg (27.0-31.0); Mean Corpuscular Volume 88.7 fL (78.0-98.0); Mean Platelet Volume 7.5 fL (7.4-10.4); Platelet Count 290 thou/uL (130-400); RBC Distribution Width 14.2 % (11.5-14.5); Red Blood Cell (RBC) Count 3.51 mill/uL (4.20-5.40)
[2019-05-29 04:38] LABS: Anion Gap 18 mmol/L (10-20); BUN (Urea Nitrogen) 69 mg/dL (9.8-20.1); Calc. Creatinine Clearance 5 mL/min (70-130); Calcium 8.9 mg/dL (7.8-10.44); Carbon Dioxide 26 mmol/L (23-31); Chloride 103 mmol/L (98-107); Estimated GFR-MDRD 5; Glucose 171 mg/dL (83-110); Potassium 3.8 mmol/L (3.5-5.1); Sodium 143 mmol/L (136-145)
[2019-05-29] MEDS: Piperacillin/Tazobactam 2.25 GM in Sodium Chloride 0.9% 100 ML IVPB SCH ×2 (05:45→14:58)
[2019-05-29] MEDS: Levothyroxine Sodium 88 MCG TAB PO SCH (05:45)
--- NOTE | 2019-05-29 09:54 | PRG ---
DATE OF SERVICE: 05/29/2019 SUBJECTIVE: Ms. Nicolas is an 79-year-old white female, who was admitted for mental status change and acute kidney injury. Empiric volume repletion has been given with slow improvement of the renal function. She has also diagnosis of significant aortic stenosis and she is not a candidate for any intervention. No new complaints today. She is feeling better. She denies any chest pain or shortness of breath. However, she still has decreased p.o. intake. OBJECTIVE: VITAL SIGNS: Blood pressure is 166/79, heart rate 87, respiratory rate 17, temperature 98.7, and pulse ox 94%. GENERAL: Awake, alert, and comfortable, not in distress. SKIN: Adequate turgor. HEENT: She has pinkish conjunctivae. Anicteric sclerae. No neck mass. No carotid bruits. No JVD. CHEST: No deformities. LUNGS: Clear breath sounds. No wheezing. No crackles. HEART: Normal sinus rhythm. No murmur. No gallops. No rubs. ABDOMEN: Globular. Soft and nontender. No masses. EXTREMITIES: No edema. No deformities. MEDICATIONS: Medications of May 29, 2019, was reviewed. LABORATORY DATA: Laboratories of May 29, 2019; white count 14, hemoglobin 10.2, sodium 143, potassium 3.8, chloride 103, carbon dioxide 26, BUN 69, creatinine 7.9, glucose 171, and calcium 8.9. ASSESSMENT AND PLAN: 1. Acute kidney injury/chronic renal failure-slowly improving renal function with IV hydration. Continue current IV fluid, except we will change the isotonic bicarbonate drip to a normal saline to run at 100 mL/h. I do not see any indication for any dialytic intervention. Also this patient is a poor dialysis candidate due to comorbid problems and underlying dementia. 2. Valvular heart disease-Cardiology following. The patient is not a candidate for any surgical intervention. 3. Agree with current management. Recheck base met in a.m. Job ID: [id number]
[2019-05-29] MEDS: Senokot S 8.6-50 MG TAB PO SCH (10:12)
[2019-05-29] MEDS: Metoprolol Tartrate 25 MG TAB PO SCH ×2 (10:19→21:57)
[2019-05-29] MEDS: Aspirin 81 mg Enteric Coated Tablet PO SCH (10:19)
[2019-05-29] MEDS: Heparin 5,000 UNITS/ML VIAL SC SCH ×2 (10:20→21:56)
[2019-05-29] MEDS: Sodium Chloride 0.9% 1,000 ML IV SCH ×2 (10:49→21:56)
--- NOTE | 2019-05-29 18:24 | PDOC.HOSPP ---
- Subjective Encounter Date: 05/29/19 Encounter Time: 17:00 Subjective: Patient seen and examined for Encephalopathy/YAHAIRA. No new complaints. No overnight events - Objective Vital Signs & Weight: Vital Signs (12 hours) Temp Pulse Resp BP Pulse Ox 05/29/19 15:00 98.0 F 95 20 118/68 92 L 05/29/19 11:51 14 116/68 05/29/19 07:30 98.7 F 87 17 166/79 H 94 L Weight Admit Weight 124 lb Weight 130 lb 8 oz I&O: 05/28/19 05/29/19 05/30/19 06:59 06:59 06:59 Intake Total 2078 2550 Output Total 950 Balance 1128 2550 Result Diagrams: 05/29/19 03:34 05/29/19 03:34 Additional Labs: Accuchecks 05/29/19 05/29/19 05/29/19 17:35 11:17 05:36 POC Glucose 127 H 165 H 196 H 05/28/19 20:12 POC Glucose 176 H EKG Reviewed by me: Yes (Tele Afib) Hospitalist ROS - Review of Systems Cardiovascular: denies: chest pain, palpitations, orthopnea, paroxysmal noc. dyspnea, edema, light headedness, other Gastrointestinal: denies: nausea, vomiting, abdominal pain, diarrhea, constipation, melena, hematochezia, other - Medication Medications: Active Medications Generic Name Dose Route Start Last Admin Trade Name Freq PRN Reason Stop Dose Admin Aspirin 81 mg 05/27/19 09:00 05/29/19 10:19 Ecotrin PO 81 mg DAILY KAREN Administration Famotidine 20 mg 05/26/19 21:00 05/28/19 21:47 Pepcid SLOW IVP Not Given QPM KAREN Famotidine 20 mg 05/26/19 21:00 05/28/19 21:48 Pepcid PO 20 mg QPM KAREN Administration Heparin Sodium (Porcine) 5,000 units 05/26/19 21:00 05/29/19 10:20 Heparin SC 5,000 units BID KAREN Administration Piperacillin Sod/Tazobactam 100 mls @ 200 mls/hr 05/26/19 22:00 05/29/19 14: 58 Sod 2.25 gm/ Sodium Chloride IVPB 100 mls Q8HR KAREN Administration Sodium Chloride 1,000 mls @ 100 mls/hr 05/29/19 09:30 05/29/19 10:49 Normal Saline 0.9% IV 1,000 mls .Q10H KAREN Administration Levothyroxine Sodium 88 mcg 05/27/19 06:00 05/29/19 05:45 Synthroid PO 88 mcg 0600 KAREN Administration Metoprolol Tartrate 25 mg 05/28/19 21:00 05/29/19 10:19 Lopressor PO 25 mg BID KAREN Administration Senna/Docusate Sodium 1 tab 05/26/19 21:00 05/29/19 10:12 Senokot S PO Not Given BID KAREN - Exam General Appearance: NAD Heart: no gallops, no rubs, murmur present Respiratory: no wheezes, rales, rhonchi Gastrointestinal: soft, non-distended, normal bowel sounds Extremities: no cyanosis, no clubbing Hosp A/P - Plan plan discussed w/ family, romero catheter, PT/OT, DVT proph w/SCDs Toxic metabolic encephalopathy, multifactorial. Acute kidney injury on chronic kidney disease stage 3 Metabolic acidosis Sepsis due to Aspiration Pneumonia (POA) Ventricular arrhythmia per EMS requiring Lidocaine. Mild starvation ketosis due to poor oral intake. Type 2 myocardial infarction - resolved Chronic anemia. Recent hospitalization for atrial fibrillation, respiratory failure/pneumonia. Alzheimer dementia. Hypothyroidism. Hypertension. Sigmoid diverticulosis. ?Rectosigmoid mass on the CT. PCP to follow. Chronic diastolic heart failure. Chronic atrial fibrillation, not an anticoagulation candidate. Swallow dysfunction. Severe aortic stenosis. Severe tricuspid regurgitation. Recent urinary tract infection. Hyperkalemia - resolved DNR PLAN: Cont IVF - NS @ 100 Cont IV Zosyn CXR in AM Cont ASA/Metoprolol Cont sliding scale AM labs Cont other meds
[2019-05-29] MEDS: Famotidine 20 MG TAB PO SCH (21:56)
[2019-05-29] MEDS: Loperamide HCl 2 MG CAP PO PRN (21:56)
[2019-05-29] MEDS: Saccharomyces boulardii 250 MG CAP PO SCH (21:56)
[2019-05-29] MEDS: Famotidine/PF 20 mg/2ml Vial SLOW IVP SCH (22:23)
[2019-05-30 04:53] LABS: #Basophils 0.1 thou/uL (0.0-0.2); #Eosinphils 0.2 thou/uL (0.0-0.7); #Lymphocytes 1.7 thou/uL (1.20-3.40); #Monocytes 1.2 thou/uL (0.11-0.59); #Neutrophils 12.3 thou/uL (1.40-6.50); %Basophils 0.6 % (0.0-1.0); %Lymphocytes 10.9 % (21.0-51.0); %Monocytes 7.8 % (0.0-10.0); %Neutrophils 79.6 % (42.0-75.0); Hemoglobin 10.3 g/dL (12.0-16.0); Mean Corpuscular HGB CONC 32.8 g/dL (32.0-36.0); Mean Corpuscular Volume 88.4 fL (78.0-98.0); Mean Platelet Volume 7.2 fL (7.4-10.4); Platelet Count 270 thou/uL (130-400); RBC Distribution Width 14.1 % (11.5-14.5); Red Blood Cell (RBC) Count 3.56 mill/uL (4.20-5.40); White Blood Cell (WBC) Count 15.4 thou/uL (4.8-10.8)
[2019-05-30 05:10] LABS: Anion Gap 18 mmol/L (10-20); BUN (Urea Nitrogen) 60 mg/dL (9.8-20.1); Calc. Creatinine Clearance 6 mL/min (70-130); Calcium 8.9 mg/dL (7.8-10.44); Carbon Dioxide 25 mmol/L (23-31); Chloride 107 mmol/L (98-107); Estimated GFR-MDRD 6; Glucose 129 mg/dL (83-110); Potassium 3.6 mmol/L (3.5-5.1); Sodium 146 mmol/L (136-145)
[2019-05-30] MEDS: Sodium Chloride 0.9% 1,000 ML IV SCH (06:32)
[2019-05-30] MEDS: Levothyroxine Sodium 88 MCG TAB PO SCH (06:32)
[2019-05-30] MEDS: Loperamide HCl 2 MG CAP PO PRN (06:32)
--- NOTE | 2019-05-30 08:40 | PRG ---
DATE OF SERVICE: 05/30/2019 SUBJECTIVE: Ms. Nicolas is an 79-year-old white female, who was admitted for mental status change and acute kidney injury. She was felt to have had a hemodynamically-mediated renal dysfunction from volume depletion. IV hydration was given, which now improved her creatinine to a most recent value of 6.66. No other complaints today. No chest pain or shortness of breath. OBJECTIVE: VITAL SIGNS: Blood pressure is 170/80 - before BP medications, heart rate 94, respiratory rate 20, temperature 96.4, and pulse ox 94% on room air. GENERAL: Awake, alert, comfortable, not in distress. SKIN: Adequate turgor. HEENT: She has pinkish conjunctivae. Anicteric sclerae. No neck mass. No carotid bruits. No JVD. CHEST: No deformities. LUNGS: Clear breath sounds. No wheezing. No crackles. HEART: Normal sinus rhythm. No murmurs. No gallops. No rubs. ABDOMEN: Globular, soft, and nontender. No masses. EXTREMITIES: No edema. No deformities. MEDICATIONS: Medications of May 30, 2019, were reviewed. LABORATORY DATA: Laboratories of May 30, 2019: White count 15.4, hemoglobin 10.3. Sodium 146, potassium 3.6, chloride 107, carbon dioxide 25, BUN 60, creatinine 6.66, glucose 129, and calcium 8.9. ASSESSMENT AND PLAN: 1. Acute kidney injury - hemodynamically-mediated renal dysfunction. Improving renal function. Continue supportive care. No indication for any dialysis. 2. Mild hypernatremia. Change IV fluid from normal saline to half-normal saline and will run at 100 mL/h. Recheck basic metabolic panel in a.m. Job ID: [id number]
[2019-05-30] MEDS: Sodium Chloride 0.45% 1,000 ML IV SCH ×2 (10:30→20:30)
[2019-05-30] MEDS: Metoprolol Tartrate 25 MG TAB PO SCH ×2 (10:31→20:29)
[2019-05-30] MEDS: Saccharomyces boulardii 250 MG CAP PO SCH ×2 (10:31→20:29)
[2019-05-30] MEDS: Aspirin 81 mg Enteric Coated Tablet PO SCH (10:32)
[2019-05-30] MEDS: Heparin 5,000 UNITS/ML VIAL SC SCH ×2 (10:32→20:29)
[2019-05-30] MEDS ORDERED: Aspirin Chewable 81 MG TAB ONE (10:40)
[2019-05-30] MEDS: Aspirin Chewable 81 MG TAB PO SCH (10:40)
--- NOTE | 2019-05-30 14:20 | PDOC.HOSPP ---
- Subjective Encounter Date: 05/30/19 Encounter Time: 09:30 Subjective: Patient seen and examined for YAHAIRA. No new complaints. No overnight events - Objective Vital Signs & Weight: Vital Signs (12 hours) Temp Pulse Resp BP BP Pulse Ox 05/30/19 12:00 98.2 F 75 18 157/89 H 95 05/30/19 08:00 96.4 F L 94 20 170/80 H 93 L 05/30/19 04:00 96.8 F L 100 22 H 135/96 H 92 L Weight Admit Weight 124 lb Weight 132 lb 14.4 oz I&O: 05/29/19 05/30/19 05/31/19 06:59 06:59 06:59 Intake Total 2550 2780 Balance 2550 2780 Result Diagrams: 05/30/19 04:27 05/30/19 04:27 Additional Labs: Accuchecks 05/30/19 05/30/19 05/29/19 11:06 05:27 20:38 POC Glucose 152 H 142 H 126 H 05/29/19 17:35 POC Glucose 127 H EKG Reviewed by me: Yes (Tele Afib) Hospitalist ROS - Review of Systems ROS unobtainable: due to mental status - Medication Medications: Active Medications Generic Name Dose Route Start Last Admin Trade Name Freq PRN Reason Stop Dose Admin Aspirin 81 mg 05/31/19 09:00 05/30/19 10:40 Aspirin Chewable PO 81 mg DAILY KAREN Administration Famotidine 20 mg 05/26/19 21:00 05/29/19 21:56 Pepcid PO 20 mg QPM KAREN Administration Heparin Sodium (Porcine) 5,000 units 05/26/19 21:00 05/30/19 10:32 Heparin SC 5,000 units BID KAREN Administration Sodium Chloride 1,000 mls @ 100 mls/hr 05/30/19 08:45 05/30/19 10:30 1/2 Normal Saline IV 1,000 mls .Q10H KAREN Administration Levothyroxine Sodium 88 mcg 05/27/19 06:00 05/30/19 06:32 Synthroid PO 88 mcg 0600 KAREN Administration Loperamide HCl 2 mg 05/29/19 19:01 05/30/19 06:32 Imodium PO 2 mg PRN PRN Administration Diarrhea/Loose Stools Metoprolol Tartrate 25 mg 05/28/19 21:00 05/30/19 10:31 Lopressor PO 25 mg BID KAREN Administration Saccharomyces Boulardii 250 mg 05/29/19 21:00 05/30/19 10:31 Florastor PO 250 mg BID KAREN Administration - Exam General Appearance: NAD Heart: no gallops, irregular Respiratory: no wheezes, no ronchi Gastrointestinal: non-distended, normal bowel sounds Extremities: no edema Hosp A/P - Plan DVT proph w/heparin, DVT proph w/SCDs Toxic metabolic encephalopathy, multifactorial. Acute kidney injury on chronic kidney disease stage 3 Metabolic acidosis Sepsis due to Aspiration Pneumonia (POA) Ventricular arrhythmia per EMS requiring Lidocaine. Mild starvation ketosis due to poor oral intake. Type 2 myocardial infarction - resolved Chronic anemia. Recent hospitalization for atrial fibrillation, respiratory failure/pneumonia. Alzheimer dementia. Hypothyroidism. Hypertension. Sigmoid diverticulosis. ?Rectosigmoid mass on the CT. PCP to follow. Chronic diastolic heart failure. Chronic atrial fibrillation, not an anticoagulation candidate. Swallow dysfunction. Severe aortic stenosis. Severe tricuspid regurgitation. Recent urinary tract infection. Hyperkalemia - resolved DNR PLAN: Cont IVF IV Zosyn dced Cont ASA/Metoprolol Cont sliding scale and other meds BMP in AM
[2019-05-30] MEDS: Famotidine 20 MG TAB PO SCH (20:29)
[2019-05-31 05:01] LABS: Anion Gap 18 mmol/L (10-20); BUN (Urea Nitrogen) 59 mg/dL (9.8-20.1); Calc. Creatinine Clearance 8 mL/min (70-130); Calcium 8.6 mg/dL (7.8-10.44); Carbon Dioxide 21 mmol/L (23-31); Chloride 108 mmol/L (98-107); Estimated GFR-MDRD 7; Glucose 119 mg/dL (83-110); Potassium 3.4 mmol/L (3.5-5.1); Sodium 144 mmol/L (136-145)
[2019-05-31] MEDS: Sodium Chloride 0.45% 1,000 ML IV SCH ×2 (05:41→16:14)
[2019-05-31] MEDS: Levothyroxine Sodium 88 MCG TAB PO SCH (05:42)
[2019-05-31] MEDS: Saccharomyces boulardii 250 MG CAP PO SCH ×2 (08:26→21:50)
[2019-05-31] MEDS: Metoprolol Tartrate 25 MG TAB PO SCH ×2 (08:27→21:50)
[2019-05-31] MEDS: Heparin 5,000 UNITS/ML VIAL SC SCH ×2 (08:27→21:50)
[2019-05-31] MEDS: Aspirin Chewable 81 MG TAB PO SCH (08:27)
--- NOTE | 2019-05-31 09:09 | PRG ---
DATE OF SERVICE: 05/31/2019 SUBJECTIVE: Ms. Nicolas is an 79-year-old white female, followed up by the Renal Service for acute kidney injury that was hemodynamically-mediated renal dysfunction. She underwent IV volume repletion with continued improvement of the renal function. This morning, she is more awake. She voices no new complaints. She denies any chest pain or shortness of breath. OBJECTIVE: VITAL SIGNS: Blood pressure 185/76, heart rate 65, respiratory rate 22, temperature 97.6, pulse ox 92%. GENERAL: The patient is awake, alert, comfortable, not in distress. SKIN: Adequate turgor. HEENT: Pinkish conjunctivae. Anicteric sclerae. NECK: No neck mass. No carotid bruits. No JVD. CHEST: No deformities. LUNGS: Clear breath sounds. No wheezing. No crackles. HEART: Normal sinus rhythm. No murmur. No gallops. No rubs. ABDOMEN: Globular, soft, nontender. No masses. EXTREMITIES: No edema. MEDICATIONS: Medications of May 31, 2019, were reviewed. LABORATORY DATA: Laboratories of May 31, 2019: Sodium 144, potassium 3.4, chloride 108, carbon dioxide 21, BUN 59, creatinine 5.69, glucose 119, calcium is 8.6. GFR 7 mL/min. ASSESSMENT AND PLAN: 1. Acute kidney injury-secondary to hemodynamically-mediated renal dysfunction. Continued improvement. I would suggest we continue IV hydration. Currently the patient is on half normal saline. No indication for any dialytic intervention. 2. Hypertension, not optimal. Increase metoprolol from 25 to 50 mg p.o. b.i.d. 3. Recheck basic metabolic panel in a.m. Job ID: [id number]
[2019-05-31] MEDS: cloNIDine 0.1 MG TAB PO SCH ×2 (12:59→21:49)
--- NOTE | 2019-05-31 21:32 | PDOC.HOSPP ---
- Subjective Encounter Date: 05/31/19 Encounter Time: 08:45 Subjective: Patient seen and examined for YAHAIRA/encephalopathy. Poor appetite. No new complaints. No overnight events - Objective Vital Signs & Weight: Vital Signs (12 hours) Temp Pulse Pulse Pulse Resp BP BP 05/31/19 15:33 97.5 F L 104 H 20 05/31/19 13:51 89 79 137/78 148/79 H 05/31/19 12:14 97.2 F L 82 21 H BP Pulse Ox 05/31/19 15:33 170/80 H 92 L 05/31/19 13:51 05/31/19 12:14 154/76 H 93 L Weight Admit Weight 124 lb Weight 132 lb 14.4 oz I&O: 05/30/19 05/31/19 06/01/19 06:59 06:59 06:59 Intake Total 2780 2436 1600 Output Total 4 Balance 2780 2432 1600 Result Diagrams: 05/30/19 04:27 06/01/19 05:05 Additional Labs: Accuchecks 05/31/19 05/31/19 05/31/19 17:03 10:46 05:31 POC Glucose 130 H 161 H 127 H EKG Reviewed by me: Yes (Tele Afib) Hospitalist ROS - Review of Systems ROS unobtainable: due to mental status - Medication Medications: Active Medications Generic Name Dose Route Start Last Admin Trade Name Freq PRN Reason Stop Dose Admin Aspirin 81 mg 05/31/19 09:00 05/31/19 08:27 Aspirin Chewable PO 81 mg DAILY KAREN Administration Clonidine 0.1 mg 05/31/19 09:00 05/31/19 12:59 Catapres PO Not Given BID KAREN Famotidine 20 mg 05/26/19 21:00 05/30/19 20:29 Pepcid PO 20 mg QPM KAREN Administration Heparin Sodium (Porcine) 5,000 units 05/26/19 21:00 05/31/19 08:27 Heparin SC 5,000 units BID KAREN Administration Sodium Chloride 1,000 mls @ 100 mls/hr 05/30/19 08:45 05/31/19 16:14 1/2 Normal Saline IV 1,000 mls .Q10H KAREN Administration Levothyroxine Sodium 88 mcg 05/27/19 06:00 05/31/19 05:42 Synthroid PO Not Given 0600 KAREN Loperamide HCl 2 mg 05/29/19 19:01 05/30/19 06:32 Imodium PO 2 mg PRN PRN Administration Diarrhea/Loose Stools Saccharomyces Boulardii 250 mg 05/29/19 21:00 05/31/19 08:26 Florastor PO 250 mg BID KAREN Administration - Exam General Appearance: NAD Heart: no gallops, murmur present Respiratory: no wheezes, no rales, rhonchi Gastrointestinal: soft, non-tender, non-distended, normal bowel sounds Extremities: no cyanosis Hosp A/P - Plan DVT proph w/SCDs Toxic metabolic encephalopathy, multifactorial. Acute kidney injury on chronic kidney disease stage 3 Metabolic acidosis Sepsis due to Aspiration Pneumonia (POA) Ventricular arrhythmia per EMS requiring Lidocaine. Mild starvation ketosis due to poor oral intake. Type 2 myocardial infarction - resolved Chronic anemia. Recent hospitalization for atrial fibrillation, respiratory failure/pneumonia. Alzheimer dementia. Hypothyroidism. Hypertension. Sigmoid diverticulosis. ?Rectosigmoid mass on the CT. PCP to follow. Chronic diastolic heart failure. Chronic atrial fibrillation, not an anticoagulation candidate. Swallow dysfunction. Severe aortic stenosis. Severe tricuspid regurgitation. Recent urinary tract infection. Hyperkalemia - resolved DNR PLAN: Cont IVF Add Clonidine Hospice eval - Plan d/w son Cont ASA/Metoprolol and other meds as above Cont sliding scale BMP in AM
[2019-05-31] MEDS: Famotidine 20 MG TAB PO SCH (21:50)
[2019-06-01] MEDS: Sodium Chloride 0.45% 1,000 ML IV SCH ×2 (01:57→12:54)
[2019-06-01 05:40] LABS: Anion Gap 17 mmol/L (10-20); BUN (Urea Nitrogen) 55 mg/dL (9.8-20.1); Calc. Creatinine Clearance 9 mL/min (70-130); Calcium 8.2 mg/dL (7.8-10.44); Carbon Dioxide 19 mmol/L (23-31); Chloride 107 mmol/L (98-107); Estimated GFR-MDRD 9; Glucose 117 mg/dL (83-110); Magnesium 1.3 mg/dL (1.6-2.6); Potassium 3.5 mmol/L (3.5-5.1); Sodium 139 mmol/L (136-145)
[2019-06-01] MEDS: Levothyroxine Sodium 88 MCG TAB PO SCH (07:21)
[2019-06-01 08:28] VITALS: BMI 24.0
[2019-06-01] MEDS ORDERED: Magnesium 2 GM/50 ML 2 GM in Premix Bag 1 BAG IVPB SCH (08:30)
[2019-06-01] MEDS ORDERED: Amlodipine 5 MG TAB PO SCH (09:00)
--- NOTE | 2019-06-01 09:36 | PRG ---
DATE OF SERVICE: 06/01/2019 SUBJECTIVE: Ms. Nicolas is an 79-year-old white female, prison patient, who was admitted for acute kidney injury from a hemodynamically-mediated renal dysfunction. IV volume repletion has been done with continued improvement of the renal function. She was also noted to be recently hypernatremic. For that reason, IV fluid has been changed to half-normal saline. No other complaints today. The patient is tolerating IV fluid. OBJECTIVE: VITAL SIGNS: Blood pressure 182/98, heart rate of 51, respiratory rate 22, temperature 97.4, pulse ox 94%. GENERAL: Awake, alert, comfortable, not in overt distress. SKIN: Adequate turgor. HEENT: Pinkish conjunctivae. Anicteric sclerae. No neck mass. No carotid bruits. No JVD. CHEST: No deformities. LUNGS: Clear breath sounds. HEART: Normal sinus rhythm. No murmur. No gallops. No rubs. ABDOMEN: Globular, soft, nontender, no masses. EXTREMITIES: No edema. No deformities. MEDICATIONS: Medications of June 01, 2019, reviewed. LABORATORY DATA: May 30, 2019, hemoglobin 10.3. June 01, 2019, sodium 139, potassium 3.5, chloride 107 carbon dioxide 19, BUN 55, creatinine 4.66, glucose 117, magnesium 1.3. ASSESSMENT AND PLAN: 1. Acute kidney injury-superimposed hemodynamically-mediated dysfunction. Continued improvement in renal function with IV hydration. Continue current IV fluid. No indication for any dialytic intervention. 2. Hypertension-we will add hydralazine 25 mg tablet t.i.d. to this patient. 3. Borderline anemia. We will simply observe this. 4. Recheck basic metabolic panel and CBC in a.m. Job ID: [id number]
[2019-06-01] MEDS: Saccharomyces boulardii 250 MG CAP PO SCH (09:54)
[2019-06-01] MEDS: Metoprolol Tartrate 25 MG TAB PO SCH (09:54)
[2019-06-01] MEDS: Aspirin Chewable 81 MG TAB PO SCH (09:54)
[2019-06-01] MEDS: cloNIDine 0.1 MG TAB PO SCH (09:57)
[2019-06-01] MEDS: Heparin 5,000 UNITS/ML VIAL SC SCH (09:57)
[2019-06-01 11:28] VITALS: TEMP 97.5
[2019-06-01 12:19] VITALS: BP 167/88
--- NOTE | 2019-06-01 13:54 | DIS ---
DATE OF ADMISSION: 05/26/2019 DATE OF DISCHARGE: 06/01/2019 DISCHARGE DISPOSITION: To [facility] with hospice. CODE STATUS: Do not resuscitate. ALLERGIES: SULFA. DISCHARGE MEDICATIONS: 1. Amlodipine 5 mg b.i.d. 2. Clonidine 0.1 mg b.i.d. 3. Hydralazine 25 mg 3 times daily. 4. Lopressor 50 mg b.i.d. 5. Aspirin 81 mg daily. 6. Levothyroxine 88 mcg daily. 7. Other p.r.n. medications. INPATIENT COMMUNICATIONS PROGRAMMER: Nephrology, Dr. Ibrahim. The patient was seen on the day of discharge. The case was discussed with Dr. Ibrahim. BRIEF HOSPITAL COURSE: The patient is an 79-year-old female, who was recently discharged from this facility, was brought into the hospital with shortness of breath along with worsening altered mentation. Workup in the emergency room was consistent with creatinine of 10.91. Creatinine on May 17, 2019 was 1.03. Please refer to the history and physical for details. The patient was admitted to the hospital with a diagnosis of toxic metabolic encephalopathy along with significant acute kidney injury and starvation ketosis. She also had ventricular arrhythmia per EMS requiring lidocaine. She was monitored on the telemetry unit. With IV fluids, her creatinine has improved to 4.6 from 10.91. The patient was also evaluated by Cardiology, Dr. Richardson Alcantar. Dr. Alcantar recommended hospice due to severe aortic stenosis. The patient will be discharged to [facility] with hospice care. FINAL DIAGNOSES: 1. Toxic metabolic encephalopathy, multifactorial. 2. Acute kidney injury on chronic kidney disease stage 3, improving. 3. Metabolic acidosis probably secondary to starvation ketosis. 4. Ventricular arrhythmia per EMS requiring lidocaine. 5. Sepsis secondary to aspiration pneumonia. The patient has completed antibiotics. 6. Type 2 myocardial infarction. 7. Chronic anemia. 8. Recent hospitalization for respiratory failure, pneumonia, and atrial fibrillation. 9. Alzheimer's dementia. 10. Hypertension. 11. Sigmoid diverticulosis. 12. Hypothyroidism. 13. Questionable rectosigmoid mass found on the CT. Primary care physician advised to follow. 14. Chronic diastolic heart failure. 15. Chronic atrial fibrillation, not an anticoagulation candidate. 16. Swallow dysfunction on modified diet. 17. Severe aortic stenosis. 18. Severe tricuspid regurgitation. 19. Recent urinary tract infection. 20. Hyperkalemia, resolved. 21. Do not resuscitate. TIME SPENT WITH PATIENT: Total time coordinating the discharge of this patient was 37 minutes. Job ID: [id number]
[2019-06-01] MEDS ORDERED: hydrALAZINE 25 MG TAB PO SCH (15:00)
== END 2019-06-01 14:44 | disposition hospice, inpatient (51) | DRG 177 ==
LOC: ERS 14:59 → 2NO 17:58
PROVIDERS: ADMIT Internal Medicine; ATTEND Internal Medicine
DX: J69.0 Pneumonitis due to inhalation of food and vomit (principal); G92 Toxic encephalopathy; I21.A1 Myocardial infarction type 2; A41.9 Sepsis, unspecified organism; N17.9 Acute kidney failure, unspecified; I50.32 Chronic diastolic (congestive) heart failure; E87.2 Acidosis; E87.0 Hyperosmolality and hypernatremia; I13.0 Hypertensive heart and chronic kidney disease with heart failure and stage 1 through stage 4 chronic kidney disease, or unspecified chronic kidney disease; Z66 Do not resuscitate; I48.0 Paroxysmal atrial fibrillation; E03.9 Hypothyroidism, unspecified; G30.9 Alzheimer's disease, unspecified; F02.80 Dementia in other diseases classified elsewhere, unspecified severity, without behavioral disturbance, psychotic disturbance, mood disturbance, and anxiety; N18.3 Chronic kidney disease, stage 3 (moderate); D63.1 Anemia in chronic kidney disease; E11.22 Type 2 diabetes mellitus with diabetic chronic kidney disease; K21.9 Gastro-esophageal reflux disease without esophagitis; E87.5 Hyperkalemia; E88.89 Other specified metabolic disorders; K57.30 Diverticulosis of large intestine without perforation or abscess without bleeding; I08.2 Rheumatic disorders of both aortic and tricuspid valves; Z87.891 Personal history of nicotine dependence; Z88.2 Allergy status to sulfonamides; Z79.890 Hormone replacement therapy; Z79.899 Other long term (current) drug therapy; Z79.82 Long term (current) use of aspirin; Z79.84 Long term (current) use of oral hypoglycemic drugs; Z90.710 Acquired absence of both cervix and uterus; Z79.51 Long term (current) use of inhaled steroids
CPT/HCPCS: 36415; 36416; 71045; 74176; 80048; 80053; 80162; 81001; 82010; 82553; 82805; 83605; 83735; 83880; 84484; 85025; 85610; 85730; 87040; 93005; 94760; 96361; 96365; J0692; J1644; J2543; J3475; J3490; J7042; J7070